=== PATIENT | female | born 1945 | race Caucasian/White ===

== ENCOUNTER 2016-11-20 21:39 | Emergency (ER) | payer OTHER ==
[~2016-11-20] VITALS: Ht 160 cm; Wt 40.8 kg
[~2016-11-20 21:39] MED LIST: ALDACTONE; ANTIBIOTIC O500 U/GM T; ATARAX25 MG PO; Amaryl2 MG PO; CLINDAMYCIN HC300 MG PO; HYDROCODONE BIT1 T11 PO; KEFLEX500 MG PO; MEDROL DOSEPAK4 MG PO; METFORMIN500 MG PO; PERCOCET 325 MG1 TA7 PO; PRAVASTATIN SOD20 MG PO; PRAVASTATIN SOD40 MG PO; PREDNISONE10 MG PO; SPIRIVA18 MCG PO; SPIRONOLACTONE50 MG PO; TRAMADOL50 MG PO; TRIAMTERENE & H1 CA1 PO; VIBRAMYCIN100 MG PO
[2016-11-20 22:15] LABS: BASO % 0.3 % (0.0-1.0); EOS # 0.1 10*3/uL (0.0-0.4); EOS % 0.8 % (1.0-4.0); HEMATOCRIT 49.3 % (37.0-47.0); HEMOGLOBIN 15.4 g/dl (12.0-16.0); LYMPH % 10.5 % (27.0-41.0); MEAN CELL VOLUME 95.4 fl (81.0-99.0); MEAN CORPUSCULAR HGB 29.8 pg (27.0-31.0); MEAN CORPUSCULAR HGB CONC 31.2 g/dl (33.0-37.0); MONO # 0.7 10*3/uL (0.1-1.0); MONO % 7.2 % (3.0-9.0); NEUT # 7.5 10*3/uL (2.3-7.9); PLATELET COUNT AUTOMATED 288 10*3/uL (130-400); RED BLOOD COUNT 5.17 10*6/uL (4.10-5.10); RED CELL DISTRI WIDTH 14.3 % (0-14.5); WHITE BLOOD COUNT 9.3 10*3/uL (4.8-10.8)
[2016-11-20 22:31] LABS: ALBUMIN 3.7 gm/dl (3.1-4.5); ALKALINE PHOSPHATASE 125 U/L (45-117); BILIRUBIN, TOTAL 0.2 mg/dl (0.2-1.0); BUN 17 mg/dl (7-24); C-REACTIVE PROTEIN 0.84 MG/DL (0-0.3); CARBON DIOXIDE 36 mmol/L (21-32); CHLORIDE 84 mmol/L (98-107); EST GLOM FILT AFRICAN AMERICAN > 60 ml/min; GLUCOSE 117 mg/dL (65-99); POTASSIUM 5.4 mmol/L (3.5-5.1); SGOT/AST 26 IU/L (3-35); SGPT/ALT 25 U/L (12-78); SODIUM 128 mmol/L (136-145); TOTAL PROTEIN 7.9 gm/dL (6.4-8.2)
[2016-11-21 01:58] LABS: ABG BASE EXCESS -0.7 mmol/L (-2.0-2.0); ABG CO2 CONTENT 39.2 mmol/L (23-27); ABG HCO3 35.3 mmol/l (22-26); ARTERIAL BLOOD GAS PO2 96.5 mmHg (80-90)
[2016-11-21 02:04] LABS: ARTERIAL BLOOD GAS PH 7.078 (7.35-7.45)
[2016-11-21 03:03] LABS: BILIRUBIN NEGATIVE (NEGATIVE); BLOOD TRACE-INTACT (NEGATIVE); CLARITY SL CLOUDY (CLEAR); COLOR YELLOW (YELLOW); GLUCOSE NEGATIVE (NEGATIVE); KETONE NEGATIVE (NEGATIVE); LEUKO ESTERASE NEGATIVE (NEGATIVE); NITRITE NEGATIVE (NEGATIVE); PH 5.5 (5.0-9.0); PROTEIN 1+ (NEGATIVE)
[2016-11-21 03:11] LABS: BACTERIA 1+; URINE REFLEX COMMENT YES (NO)
[2016-11-21 03:15] LABS: BASO # 0.1 10*3/uL (0.0-0.1); BASO % 0.4 % (0.0-1.0); EOS % 0.2 % (1.0-4.0); HEMATOCRIT 51.8 % (37.0-47.0); HEMOGLOBIN 15.6 g/dl (12.0-16.0); IG # 0.2 10*3/uL (0.0-0.1); LYMPH # 0.7 10*3/uL (1.3-4.4); LYMPH % 5.2 % (27.0-41.0); MEAN CORPUSCULAR HGB CONC 30.1 g/dl (33.0-37.0); MEAN PLATELET VOLUME 8.2 fl (9.6-12.3); MONO # 0.5 10*3/uL (0.1-1.0); MONO % 4.2 % (3.0-9.0); NEUT # 10.9 10*3/uL (2.3-7.9); NEUT % 88.4 % (47.0-73.0); PLATELET COUNT AUTOMATED 333 10*3/uL (130-400); RED CELL DISTRI WIDTH 14.3 % (0-14.5); WHITE BLOOD COUNT 12.4 10*3/uL (4.8-10.8)
[2016-11-21 03:19] LABS: MEAN CELL VOLUME 99.6 fl (81.0-99.0)
[2016-11-21 03:27] LABS: ABG CO2 CONTENT 39.5 mmol/L (23-27); ABG HCO3 34.4 mmol/l (22-26); ABG TEMPERATURE 97.7 F (98.0-99.0)
[2016-11-21 03:31] LABS: ARTERIAL BLOOD GAS PH 6.955 (7.35-7.45)
[2016-11-21 03:32] LABS: BUN 17 mg/dl (7-24); CARBON DIOXIDE 36 mmol/L (21-32); CHLORIDE 87 mmol/L (98-107); EST GLOM FILT AFRICAN AMERICAN > 60 ml/min; GLUCOSE 231 mg/dL (65-99); POTASSIUM 5.1 mmol/L (3.5-5.1); SODIUM 132 mmol/L (136-145); TROPONIN I 0.019 ng/ml (<0.045)
[2016-11-21 03:32] LABS: ABG BASE EXCESS -6.5 mmol/L (-2.0-2.0)
[2016-11-21 05:48] LABS: ABG BASE EXCESS 0.5 mmol/L (-2.0-2.0); ABG CO2 CONTENT 33.1 mmol/L (23-27); ABG HCO3 30.7 mmol/l (22-26); ABG TEMPERATURE 96.4 F (98.0-99.0); ARTERIAL BLOOD GAS PH 7.232 (7.35-7.45)
== END 2016-11-21 06:45 | disposition short-term general hospital (02) ==
LOC: ED 21:39
PROVIDERS: Emergency Medicine Emergency Medical Services
DX: J96.22 Acute and chronic respiratory failure with hypercapnia (principal); F17.200 Nicotine dependence, unspecified, uncomplicated; Z79.899 Other long term (current) drug therapy

== ENCOUNTER 2017-08-11 19:08 | Inpatient (IN) | payer OTHER ==
[~2017-08-11] VITALS: Ht 160 cm; Wt 43.1 kg
[2017-08-11] VITALS (12 sets, daily range): BP systolic 74–175; BP diastolic 29–66
--- NOTE | ~2017-08-11 | PR ---
[place], [place] PROGRESS NOTE NAME: [id number] UN[facility] #: [id number] ROOM: 511 DOCTOR: HANK LOPEZ MD BIRTHDATE: [birth year] DOS: SUBJECTIVE: The patient has no complaints today. She is sitting up in a chair. She did walk with therapy. PHYSICAL EXAMINATION: VITAL SIGNS: Blood pressure 148/64, pulse is 79, respirations 20, temperature 98.1. LUNGS: Clear. HEART: Regular. ABDOMEN: Soft. EXTREMITIES: Without any edema. ASSESSMENT AND PLAN: 1. Acute hypercapnic and hypoxic respiratory failure. The patient is improving. 2. Sputum with Staphylococcus aureus and Haemophilus influenzae, on antibiotics. The plan is to discharge her to home tomorrow after she completes a 5-day course of IV antibiotics. 3. Urinary tract infection with Escherichia coli, also on antibiotics. 4. Adult failure to thrive. The patient has refused senior care placement. We will be discharging her to home tomorrow with visiting nurses. 5. Abnormal liver function tests, possibly from the sepsis pattern. We will repeat liver function tests in the morning along with a liver scan. HANK LOPEZ MD CM:PNANGELO [id number] HANK LOPEZ MD 08/18/17 0510 interface
--- NOTE | ~2017-08-11 | PR ---
[place], [place] PROGRESS NOTE NAME: LEONARDO LUCIA UNIT #: [id number] ROOM: 511 DOCTOR: NYDIA HERNANDEZ DO BIRTHDATE: [birth year] DOS: 08/18/2017 SUBJECTIVE: The patient was seen and examined at bedside. The patient reports that her respiratory symptoms have completely resolved. She feels better, has no new complaints today. The patient reports that she feels like she is ready for discharge. OBJECTIVE: VITAL SIGNS: Temperature is 98.0, pulse is 76, respirations 18, blood pressure 149/57 and pulse ox is 98% on 3 liters nasal cannula. LABS: BMP and CBC were reviewed and showed no acute changes from previous labs. Bronchial washings remain negative. Blood cultures were negative. Urine culture was positive for E. coli. Sputum culture is positive for Staphylococcus aureus and Hemophilus influenza. Liver ultrasound from yesterday showed unremarkable ultrasound of the right upper quadrant, no cholelithiasis, gallbladder wall thickening or biliary dilatation was appreciated. PHYSICAL EXAMINATION: GENERAL APPEARANCE: Alert, awake and oriented x 3, no acute distress. HEENT: Eyes are clear. Nares were patent. Mucous membranes are moist. NECK: Supple, nontender. PULMONARY: No wheezes, rales or rhonchi. Clear to auscultation. CARDIOVASCULAR: Regular rate and rhythm; no murmurs, gallops or rubs. ABDOMEN: Soft, nontender with positive bowel sounds. ASSESSMENT: 1. Resolution of acute severe hypercapnic and hypoxic respiratory failure. 2. Acute polymicrobial pneumonia, status resolved. 3. Severe protein-calorie malnutrition, which is chronic. PLAN: The patient was medically stable from a pulmonary standpoint for discharge. The patient is to continue on Diamox with outpatient antibiotics and can follow up with outpatient with Dr. Starkey as needed. The patient was medically stable for discharge. NYDIA HERNANDEZ DO [place], [place] PROGRESS NOTE NAME: LEONARDO LUCIA UNIT #: [id number] ROOM: 511 DOCTOR: NYDIA HERNANDEZ DO BIRTHDATE: [birth year] FLOYD STARKEY MD CM:PNANGELO [id number] [id number] NYDIA HERNANDEZ DO 08/18/17 225 interface
--- NOTE | ~2017-08-11 | CON ---
[place], [place] REPORT OF CONSULTATION NAME: LEONARDO LUCIA UNIT #: [id number] [facility] DOCTOR: JAKY HENDERSON MD,FLOYD BIRTHDATE: [birth year] DOS: 08/12/2017 REASON FOR CONSULTATION: To assess the patient's current acute respiratory failure, hypercapnia. HISTORY OF PRESENT ILLNESS: The patient is unable to provide me any history by herself since the patient currently intubated, noted on mechanical ventilation; however, been noted awake with a low dose of IV Diprivan 20 mcg per minute. She has been brought to the hospital. The patient has been seen by the ER physician for this patient because of the unresponsiveness. The patient has been noted with significant change in mental status, confusion, which has been described for the past few days and the patient refusing to come to the hospital. The patient has been brought to the hospital by the EMS, noted with a severe acute hypercapnic respiratory failure for the patient. Change in mental status and unresponsiveness. The patient has been assessed by Dr. Sands for this patient in the Emergency Room. The arterial blood gases were noted pCO2 of 173, pH of 7.03, pO2 of 93 for the patient on 100% nonrebreather mask. She has been intubated and started on mechanical ventilation. Mechanical ventilation, continue the patient since last night until this morning assist control, volume control, mechanical ventilation without any difficulty. The sedation to be given Diprivan. She has not been noted any chest pain reported. There were no symptoms of hemoptysis. Post-intubation, patient noted hypotensive requiring use of the vasopressor therapy for the patient's short term as well. The patient has been started on intravenous antibiotics. The patient and getting IV Solu-Medrol 40 mg hours. REVIEW OF SYSTEMS: Could not be completed since the patient is currently intubated, noted on mechanical ventilation. PAST MEDICAL HISTORY: The patient was recorded as a: 1. History of chronic obstructive pulmonary disease. 2. History of breast cancer, right lumpectomy details otherwise unknown. PAST SURGICAL HISTORY: The patient reported as: 1. Surgery of lower back: 2. Appendectomy. 3. TNA. 4. Right breast lumpectomy. SOCIAL HISTORY: The patient was described as no tobacco use. The patient in the history or documented by the nursing staff. However, this requires confirmation from the family members. She had not been reported any history of alcohol use or any illicit drugs. FAMILY HISTORY: The patient was unknown. PHYSICAL EXAMINATION: GENERAL: A 72-year-old female who has been currently noted intubated, mechanical ventilation noted quite cachectic. Height of 5 feet 3 inches, weight of 95 pounds. The patient's BMI only 16.8. [place], [place] REPORT OF CONSULTATION NAME: LEONARDO LUCIA UNIT #: [id number] [facility]: [facility] DOCTOR: JAKY HENDERSON [facility] BIRTHDATE: [birth year] VITAL SIGNS: Which has been recorded shows rectal temperature noted low grade. The patient 100.4 degree Fahrenheit, otherwise the temperature noted as normal. Temperature on admission are noted 100.7 degree Fahrenheit, respiratory recorded 32, 24, current mechanical ventilation x 12. Severe tachycardia noted, heart rate of 138 beats per minute, maximum heart rate occurred noted. Heart rate as 90. The patient noted as lowest of 74-52 and this morning noted 124/48. Pulse oxygen saturation of the patient noted 50% oxygen as 99% saturation this morning. HEENT: The patient currently intubated. Orogastric tube in place. Head was atraumatic. Eyes nonicterus. NECK: Supple. EARS, NOSE, THROAT SYMPTOMS: JVD appeared to be elevated. The patient mildly in the 90 degree flat position. CARDIOVASCULAR: S1, S2 audible. LUNGS: Noted for patient. Generally decreased breath sounds in the lungs bilaterally. Decreased air exchange were noted. Scattered wheezing. ABDOMEN: Flat, soft, nontender. Bowel sounds present. EXTREMITIES: The patient was noted with loss of muscle mass for the patient. There was no clubbing, cyanosis. MUSCULOSKELETAL: No gross deformity or loss of muscle mass. The patient was noted. Visible skin: No lesions or rashes. CENTRAL NERVOUS SYSTEM: The patient could not be done accurately for this patient. The patient was noted gently awake. The patient is low dose of sedation at this time. Further examination could not be performed. LABORATORY DATA: The labs in this patient. Chest x-ray, the patient was originally done on admission prior to intubation, the patient was removed for this patient shows patchy infiltration in the right upper lung. Severe hyperinflation changes of COPD, suspected volume loss. The patient with atelectasis, infiltration noted in the left lung. The chest x-ray of the patient that has been done previously for the patient at that time. The patient seemed to be intubated at that time. Chest x-ray was noted, well inflated with changes of COPD and hyperinflation at that time. Chest x-ray of the patient post-intubation shows endotracheal tube were noted about 6 cm above the aliyah level. Improvement in aeration Noted with bilateral patchy infiltration was still visible. NG tube were noted in the stomach. IMPRESSION: 1. The patient who has been currently noted with acute severe hypercarbic respiratory failure for the patient with possible underlying chronic hypercarbia suspected with acute hypoxia and respiratory failure as a result of current area of atelectasis and bilateral patchy infiltration is very likely. The infiltration. The patient could be considered. The patient as acute pneumonia for this patient with community acquired infection, gram-positive, gram-negative infection. The possibility of viral infection can be completely excluded; however, the history at this time has not been available. 2. Metabolic alkalosis. The patient was also noted the patient on this admission as well. 3. Physical appearance of very severe advanced protein calorie malnutrition, muscle mass loss as well past history of breast cancer. The patient was noted [place], [place] REPORT OF CONSULTATION NAME: LEONARDO LUCIA UNIT #: [id number] [facility]: [facility] DOCTOR: JAKY HENDERSON MD,FLOYD BIRTHDATE: [birth year] on the right side, details unknown from the past surgery. PLAN OF MANAGEMENT: Ventilator bundle management will be continued. The patient was started on IV Solu-Medrol 40 mg every 8 hours and getting IV meropenem. The patient states hematocrit is good coverage for the typical and atypical organisms including gram-negative coverage. The feeding and nutrition support will be started. Obtain another arterial blood gas for patient to reassess the current oxygenation prior to assess and further changes. Fiberoptic bronchoscopy will be done tomorrow. Monitor the patient for further assessment of endobronchial tree as well. Nutrition support will be started. Prealbumin level will be obtained. DVT prophylaxis will be continued. Supportive therapy, plan of management, other care plan. Continue use of propofol. Use of vasopressor if necessary for the patient for the hypertension could be resumed. Otherwise, keep up with the volume. Additional treatment changes will be done based on progression of the illness. Try to obtain the medical record, patient from the other facility for this patient for details about history of cancer. CT scan of the chest might be beneficial. The patient to assess. Use of the Diamox. The patient if the bicarbonate level will be persistently elevated. Other supportive therapy, plan of management and care. The patient today were ordered. At this time. The patient pulmonary critical evaluation and management was 45 minutes. Labs to be added to the patient in addition to the chest x-ray of patient above the insert for the impression note. Continue lab for this patient after the chest x-ray which are dictated in the consultation. Arterial blood gas that were done yesterday prior to intubation pH 7.03, pCO2 of 173, pO2 of 93.4. The arterial blood gas that were done later, pH of 7.25, pCO2 80.4, pO2 of 95, 100% oxygen supplementation. Arterial blood gas for the patient this morning, pH of 7.42, pCO2 of 52, pO2 of 52.4 on 40% oxygen. Arterial blood gas for the patient and 50% oxygen, pH of 7.40, pCO2 of 59, pO2 of 85 later on done. The CBC yesterday on admission, WBC count 15.6, hemoglobin and hematocrit normal, platelet count was normal. The CMP of the patient this morning, glucose 141, BUN 13, creatinine 0.44, sodium 133, ____, chloride of 90, carbon dioxide of 41, alkaline phosphatase mildly elevated at 161. Albumin decreased 2.7, mildly troponin of patient first set was normal. PT/INR noted yesterday normal. Influenza A and B, nasal washing antigen rapid antigen were negative. CT scan of the head for the patient without contrast does not show any acute pathology. Cervical spine was also noted essentially without contrast without any major acute abnormality or injury findings. Lactic acid, the patient that were done yesterday was noted as normal. [place], [place] REPORT OF CONSULTATION NAME: LEONARDO LUCIA UNIT #: [id number] [facility]: [facility] DOCTOR: JAYESH PHILLIPS MDM BIRTHDATE: [birth year] FLOYD STARKEY MD CM:CONSTR:REPORT OF CONSULTATION 1634 08/12/17 1800 interface
--- NOTE | ~2017-08-11 | PR ---
[place], [place] PROGRESS NOTE NAME: LEONARDO LUCIA UNIT #: [id number] ROOM: [facility] DOCTOR: HANK LOPEZ MD BIRTHDATE: [birth year] DOS: SUBJECTIVE: She was extubated yesterday. OBJECTIVE: GENERAL: This morning is awake and alert and oriented, in no major distress. VITAL SIGNS: Blood pressure is 128/59, pulse of 84, respirations 28, temperature 97.6. LUNGS: Clear. HEART: Regular. ABDOMEN: Soft. EXTREMITIES: Without any edema. ASSESSMENT AND PLAN: 1. Acute hypoxic and hypercapnic respiratory failure, stable post-extubation. 2. Sputum culture with Staphylococcus aureus and Haemophilus influenza as well as urinary tract infection with Escherichia coli. For which she has been placed on cephalosporin. Dr. Parker has changed the antibiotic to Rocephin. 3. Adult failure to thrive. The patient is to go to rehab if Physical Therapy agrees ____ so far the patient is refusing. PT, OT will be consulted on transfer to the [facility]. HANK LOPEZ MD CM:PNTRANS [id number] HANK LOPEZ MD 08/16/17 1126 interface
--- NOTE | ~2017-08-11 | PR ---
[place], [place] PROGRESS NOTE NAME: LEONARDO LUCIA [facility] #: [id number] UNIT #: [id number] ROOM: [facility] DOCTOR: JAKY HENDERSON MD,FLOYD BIRTHDATE: [birth year] DOS: 08/13/2017 SUBJECTIVE: The patient is seen and examined this afternoon. She has now been noted symptoms of chest pain or any abdominal pain reported as the patient has been awakened from the sedation. The patient was noted with normal mental status per nursing staff. This afternoon, the patient was sedated with IV Diprivan. Continue same mechanical ventilator, sating yesterday without any changes noted. The oxygen supplementation noted as 50% oxygen. She has been planned for bronchoscopy done today in the Intensive Care Unit for further assessment. Thick secretion endobronchial tree. She has now been noted any symptoms of hemoptysis. The feeding was continued. The patient seemed to be tolerated. OBJECTIVE: VITAL SIGNS: Temperature max of 99.9 degree Fahrenheit noted. The respiratory rate 12-14, heart rate of 83-101, blood pressure 116/50-117/52. Intake is 1526/600 mL. Pulse oxygen saturation 50% oxygen, 97% saturation. HEENT: Examination shows the patient remained orally intubated. NECK: Supple. Head was atraumatic. CARDIOVASCULAR: S1, S2 is audible. LUNGS: The patient was noted without any crackles. Decreased breath sounds noted with expiratory wheezing. The patient scattered in the lungs. ABDOMEN: Soft, nontender. Bowel sounds present. CENTRAL NERVOUS SYSTEM: The patient apparently noted nonfocal. Moving upper and lower extremities by herself. MUSCULOSKELETAL: The patient has chronic protein malnutrition status. The patient was also noted. No deformities. SKIN: Visible skin. No lesions or rashes. LABORATORY DATA: Blood culture from 08/11/2016 this month showed no bacterial growth. Urine culture the patient heavy growth of gram-negative bacilli with pending identification sensitivities. One of the culture ____ showed no bacterial growth, preliminary at this time. The CMP this morning, glucose 190, BUN 21, creatinine was normal, CO2 36. Prealbumin noted only 7. Alkaline phosphatase of 138, mildly elevated. Albumin 2.0. Total protein 6.3, mildly decreased as well. CBC today: WBC count 10.3, hemoglobin 11, hematocrit 35.5, platelet count 226,000. Arterial blood gas this morning, pH of 7.45, pCO2 of 52.2, pO2 156 with a 50% oxygen supplementation. IMPRESSION: 1. The patient who had been currently noted with a severe acute hypercapnic and hypoxic respiratory failure related to the chronic obstructive pulmonary disease. 2. Bilateral lower lobe pneumonia. The patient has been considered at the chest x-ray. CT scan of the chest were reviewed. 3. Past history of breast cancer with mastectomy was also reported. 4. Severe protein-calorie malnutrition as well. 5. Metabolic alkalosis as well. PLAN: Other supportive therapy, plan of management care for the patient to be done based on the current progression of the illness. CT scan of the chest that [place], [place] PROGRESS NOTE NAME: LEONARDO LUCIA UNIT #: [id number] ROOM: [facility] DOCTOR: FLOYD PHILLIPS MD BIRTHDATE: [birth year] was done this morning was personally reviewed. The patient shows basilar area of atelectasis/infiltration without any abnormal mass lesion. The apical scarring in lung. Evidence of severe emphysema changes. The patient was also noted. Scattered pulmonary nodules was noted in the lungs measuring up to 1 cm in size at this time of unknown significance, need correlation to the previous CT scan and other testing as an outpatient. Possible consideration of PET scan. Based on the review of the medical record. Maximize the nutrition support. Bronchoscopy will be done today. Total time, the patient pulmonary critical care evaluation and management today was 48 minutes. FLOYD STARKEY MD CM:PNTRANS 1717 2 FLOYD HENDERSON MD 08/14/17122 interface
--- NOTE | ~2017-08-11 | EKG ---
[place], [place] ELECTROCARDIOGRAM REPORT NAME: LEONARDO LUCIA UNIT #: [id number] ROOM: [facility] DOCTOR: JAKY HENDERSON MD,FLOYD BIRTHDATE: [birth year] DOS: 08/11/2017 TIME: Done at the time of 7:36 p.m. Sinus tachycardia noted, heart rate of 120 beats per minute. Probable left atrial enlargement. Peak T-wave ____ noted in the lateral lead, rule out ischemia or hyperkalemia. FLOYD STARKEY MD CM:EKGRPT:ELECTROCARDIOGRAM REPORT 1722 173 FLOYD HENDERSON MD
--- NOTE | ~2017-08-11 | PR ---
[place], [place] PROGRESS NOTE [id number] UN[facility] #: [id number] ROOM: [facility]- DOCTOR: HANK LOPEZ MD BIRTHDATE: [birth year] DOS: SUBJECTIVE: The patient is awake, on a ventilator, does not seem to have any complaints other than she does not want the ET tube. OBJECTIVE EXAMINATION: GENERAL: Today, she is awake and alert. VITAL SIGNS: Graphic trend shows a pressure 117/52, pulse of 83, respirations 12, temperature 98.7. LUNGS: Clear. HEART: Regular. ABDOMEN: Soft, scaphoid. EXTREMITIES: Without any edema. ASSESSMENT AND PLAN: 1. Acute exacerbation of chronic obstructive pulmonary disease, on intravenous steroids. 2. Acute hypercapnic respiratory failure from end-stage chronic obstructive pulmonary disease, on the ventilator, doing well. 3. Early sepsis, ruled out with negative blood cultures. 4. Moderate cigarette smoker. The patient seems not to want the ventilator. We will have to discuss code status when she comes off the ventilator. Dr. Parker plans to do a bronchoscopy today. CT of the chest shows severe emphysema, also pulmonary nodules were noted, for which recommended a PET scan as an outpatient. An echocardiogram done during admission, showed normal LV function without any valvular pathology. HANK LOPEZ MD CM:PNTRANS [id number] [id number] HANK LOPEZ MD 08/14/17 0117 interface
--- NOTE | ~2017-08-11 | DS ---
[place], [place] DISCHARGE SUMMARY NAME: [facility] [id number] UNIT #: [id number] ROOM: 511 DOCTOR: HANK LOPEZ MD BIRTHDATE: [birth year] DOS: 08/18/2017 HOSPITAL COURSE: The patient is 72 years old. The patient is not known to us. The patient of Dr. River, comes in with complaints of difficulty breathing. After being evaluated in the ER, she was found to be in acute respiratory failure. She was intubated and was transferred to the ICU. After admission, the patient had a consultation with Dr. Parker. IV steroids, antibiotics were added. Peng cultures were performed. The patient improved slowly, but weaning efforts for the first two attempts were unsuccessful. Third time, weaning attempt was successful and she was taken off the ventilator. Echocardiogram showed normal LV function. CT of the chest shows pulmonary nodules and severe COPD. The patient is finally off the ventilator and is doing well, is ambulating with physical therapy. I recommended skilled but she does decline. The plan is to discharge her to home today. DISCHARGE MEDICATIONS: Will be tapering dose of prednisone, Cipro 500 b.i.d., DuoNeb q. 4 hours. The home medications have been discontinued and she will follow Dr. River and she can make a decision in regard to restarting her home meds. HANK LOPEZ MD CM:DISCHARG [id number] [id number] HANK LOPEZ MD 08/18/17 1522 interface
--- NOTE | ~2017-08-11 | PR ---
[place], [place] PROGRESS NOTE NAME: LEONARDO LUCIA [facility] #: [id number] UNIT #: [id number] ROOM: [facility] DOCTOR: JAKY HENDERSON MD,FLOYD BIRTHDATE: [birth year] DOS: 08/14/2017 SUBJECTIVE: She has been noted comfortable at this time without any distress. She was noted much more awake and alert at this time. Sedation has been discontinued. The patient earlier was given a trial of CPAP 5, pressure support of 10 for 2 hours. She was noted significant hypercapnia. The CPAP trial was given yesterday as well. This morning, the patient was noted with worsening with hypercarbia as compared with last night. She continued to remain on mechanical ventilator, switched back to assist control mode of mechanical ventilation. Feeding was continued for the patient which has been well tolerated. She has not been noted any acute hemodynamic instability. Antibiotic was continued. Bronchoscopy done yesterday with significant mucus impaction care of endobronchial tree mainly on the left side. OBJECTIVE: VITAL SIGNS: Normal temperature, respiratory rate 18-12, heart rate 110-78, blood pressure 133/54, blood pressure 142/60. Pulse oxygen saturation of the patient noted on 40% oxygen, 98% saturation. HEENT: No acute change. NECK: Supple. CARDIOVASCULAR: S1, S2 audible. LUNGS: The patient was noted without any wheezing or crackles at the present time. Breaths are noted mildly diminished bilaterally. ABDOMEN: Soft, nontender. Bowel sounds present. EXTREMITIES: The patient was noted without any edema, loss of muscle mass. MUSCULOSKELETAL: No deformity. SKIN: No lesions or rashes. LABORATORY DATA: Culture of the bronchial washing from yesterday normal kelli noted. Endotracheal aspirate on 11, final culture results were pending. Arterial blood gas this morning, pH of 7.25, pCO2 of 91.2, pO2 of 66, ____ 40% oxygen, CPAP 5, pressure support of 10. The CMP this morning, glucose 169, BUN 23, creatinine was normal. CO2 of 39. Albumin of 2.1. CBC this morning, WBC count 11.2, hemoglobin 11.7, hematocrit 38.0, and platelet count of 241,000. Urine culture, the patient was noted with grade than 100,000 colony forming units of E. coli. CT scan of the chest was done yesterday was noted with bilateral pulmonary nodules. Enlargement of lymph nodes were also noted. IMPRESSION: The patient currently noted in the hospital with severe acute hypercapnic and hypoxic respiratory failure, chronic hypoxic respiratory failure, acute exacerbation of chronic obstructive pulmonary disease, bilateral pulmonary nodules, mediastinal lymphadenopathy, hypercarbia. Severe protein calorie malnutrition as well. PLAN OF MANAGEMENT: Maximize the medical therapy for the patient at this time. Another trial of the CPAP for the patient to be done tomorrow morning. Continue current dose of corticosteroids. Continuation of the current antibiotic with change in antibiotic spectrum tomorrow. ____ based on bronchial washing cultures. Other supportive therapy, plan and management continue previously. Usual care are the plan of management and therapy as in progress. Supportive [place], [place] PROGRESS NOTE NAME: LEONARDO LUCIA Ahmet UNIT #: [id number] ROOM: [facility] DOCTOR: FLOYD PHILLIPS MD BIRTHDATE: [birth year] therapy and other care for the patient as well. Maximal nutritional status. Bronchodilators administration. Pulmonary critical college management. Total time pulmonary and critical evaluation and management of the patient was 38 minutes. FLOYD STARKEY MD CM:NORMA [id number] FLOYD HENDERSON MD 08/14/17 1604 interface
--- NOTE | ~2017-08-11 | PROC NOTE ---
[place], [place] PROCEDURE NOTE [id number] UN[facility] #: [id number] [facility]: [facility] DOCTOR: JAKY HENDERSON MD,FLOYD BIRTHDATE: [birth year] DOS: 08/13/2017 PREOPERATIVE DIAGNOSES: Excessive secretion production with acute respiratory failure with chronic obstructive pulmonary disease exacerbation. POSTOPERATIVE DIAGNOSES: Removal of multiple plugs of the mucus, endobronchial tree bilaterally, greater on the left than the right side. There were no endobronchial obstructive lesions. PROCEDURE DESCRIPTION: Informed consent obtained from the patient's family members. The patient's procedure was completed in negative pressure room. The video fiberoptic bronchoscope advanced to the endotracheal tube lower part of trachea. Lower part trachea shows moderate amount of thick mucus secretions. Copious amount of mucus noted with impaction was present, majority in the left upper lingula and lower lobe. All secretions suctioned and cleared. No endobronchial obstructive lesions noted. Moderate mucus impaction noted in the right upper lobe. All the bronchial lobe in the right middle, right upper and the right lower lobe were noted as normal after that. Procedure well tolerated by the patient. Bronchial washings sent for appropriate culture. Procedure well tolerated without complication. As the procedure was completed, the patient will benefit from a trial of possible liberation of mechanical ventilation preparedness by use of CPAP 5, pressure support of 10, which will be given 2 hours off sedation with the patient mostly awake. FLOYD STARKEY MD CM:PROCNOTE:PROCEDURE NOTE [id number] FLOYD HENDERSON MD
--- NOTE | ~2017-08-11 | CON ---
[place], [place] REPORT OF CONSULTATION NAME: LEONARDO LUCIA UNIT #: [id number] ROOM: [facility] DOCTOR: NYDIA HERNANDEZ DO BIRTHDATE: [birth year] DOS: 08/12/2017 CHIEF COMPLAINT: Hypoxia. HISTORY OF PRESENT ILLNESS: Is limited by patent being intubated and on propofol; however, the patient is alert and awake mildly and able to nod her head, but unable to respond to questioning. According to the ED report, the patient is a 72-year-old female who was brought to the hospital for respiratory failure. The patient's pulse ox was 80% when EMS arrived on scene, the patient was put on BiPAP and had improvement of oxygenation level to 100%. Additionally, the patient was tachycardic at the time of presentation. All other HPI limited by patient's medical condition. PAST MEDICAL HISTORY: Hyperlipidemia, end-stage COPD, tobacco abuse, diabetes, osteoporosis. PAST SURGICAL HISTORY: History of back surgery, history of appendectomy, history of tonsillectomy and adenoidectomy, history of breast lumpectomy. SOCIAL HISTORY: Tobacco abuse. The patient unable to provide further social history. FAMILY HISTORY: No family history is available. ALLERGIES: The patient is allergic to RASPBERRY. REVIEW OF SYSTEMS: The patient complains of shortness of breath and sputum production; however, all other review of systems limited due to the patient being intubated. PHYSICAL EXAMINATION: GENERAL APPEARANCE: The patient is awake and alert, in mild to moderate respiratory distress. HEENT: Eyes are clear. No injection, no drainage. Nares patent. Oral mucosa is moist. OG and intubation tube in place. CARDIAC: Regular rate and rhythm, no murmurs, gallops or rubs. PULMONARY: Rales and rhonchi and expiratory wheezes noted in all lung pal with positive sputum production. ABDOMEN: Soft, nontender, positive bowel sounds. EXTREMITIES: Upper and lower extremities showed no edema and erythema, cyanosis or clubbing. NEUROLOGIC: Grossly intact without focal deficits. SKIN: No rashes or lesions. IMAGING: Chest x-ray, diffuse airspace opacities was seen compatible with infiltration, which resolved upon intubation with a followup chest x-ray. Head CT was unremarkable. Cervical spine CT was negative for acute injury. Micro, blood cultures pending. Sputum cultures pending. Urine culture is pending. Nares for MRSA pending. Flu was negative. [place], [place] REPORT OF CONSULTATION NAME: LEONARDO LUCIA UNIT #: [id number] ROOM: [facility] DOCTOR: NYDIA HERNANDEZ DO BIRTHDATE: [birth year] IMPRESSION: 1. Bbkkh-td-kdsiokz respiratory failure with hypercarbia and hypoxia, status improving with chronic obstructive pulmonary disease exacerbation and pneumonitis. 2. Diabetes. 3. Hyperlipidemia. 4. Osteoporosis. 5. Failure to thrive with low BMI. 6. Severe sepsis. TREATMENT PLAN: The patient is intubated at this time. Settings have been adjusted with serial ABGs, bronchoscopy possible for tomorrow to help clear secretions. Continue with azithromycin and Merrem, DuoNeb, Solu-Medrol 40 q.8 for respiratory therapy. Agree with all other plan. Continue with supportive care. We will reassess the patient in the morning. We appreciate this consult. NYDIA HERNANDEZ DO FLOYD STARKEY MD CM:CONSTR:REPORT OF CONSULTATION 1215 08/12/17 1313 interface
--- NOTE | ~2017-08-11 | PR ---
[place], [place] PROGRESS NOTE NAME: LEONARDO LUCIA [facility] #: [id number] UNIT #: [id number] ROOM: 511 DOCTOR: JAKY HENDERSON MD,FLOYD BIRTHDATE: [birth year] DOS: 08/18/2017 SUBJECTIVE: The patient was independently seen and examined, watm-jf-ukei encounter, history was confirmed, physical examination performed, all the lab reviewed, assessment and the management changes for the patient was personally done. The note done by the biomedical photographer was approved as well. The patient has been noted comfortable at this time, sitting on the chair, does not have signs of acute distress. Denies symptoms of chest pain, hemoptysis. PHYSICAL EXAMINATION: VITAL SIGNS: Reviewed as normal. The pulse oxygen saturation noted on 3 liters at 98% saturation of oxygen. LUNGS: Noted with moderate decreased breath sounds. There were no wheezing or crackles present at this time. ABDOMEN: Soft, nontender. EXTREMITIES: Noted without any acute edema. Chronic loss of muscle mass was noted. IMPRESSION: The patient has been showing progressive resolution and improvement in the acute severe hypercapnic respiratory failure with hypoxia, polymicrobial pneumonia, Haemophilus influenzae with infection, chronic protein calorie malnutrition, and over debility. PLAN: To discharge the patient home on oral antibiotics, bronchodilators, corticosteroids and the long-term management of COPD medications which has been made by Dr. Katie Hardy. FLOYD STARKEY MD CM:PNTRANS [phone] FLOYD HENDERSON MD 08/18/17 182 interface
--- NOTE | ~2017-08-11 | PR ---
[place], [place] PROGRESS NOTE [id number] UN[facility] #: [id number] ROOM: 511 DOCTOR: JAKY HENDERSON MD,FLOYD BIRTHDATE: [birth year] DOS: 08/17/2017 SUBJECTIVE: She was independently seen and examined in [id number] encounter, history was confirmed, physical examination performed. All the available labs were reviewed. The assessment and management changes were personally done. Note done by the medical anthropologist was approved. The patient has been doing well. The patient sitting at this time on the chair in her room, eating her breakfast. Using oxygen supplementation on nasal cannula. She has not been noted with symptoms of chest pain. Coughing and shortness of breath are improving. OBJECTIVE: VITAL SIGNS: Reviewed with the patient was essentially noted as normal. The pulse oxygen saturation of the patient recorded 3 liters on nasal cannula 93% saturation. LUNGS: Noted decreased breath sounds in the lungs bilaterally. ABDOMEN: Soft, flat, nontender. EXTREMITIES: Loss of chronic muscle mass. IMPRESSION: The patient with progressive resolution of acute severe hypercapnic hypoxic respiratory failure with acute polymicrobial pneumonia, predominant organism Haemophilus influenzae, severe chronic protein calorie malnutrition. PLAN OF TREATMENT: Continue current plan of therapy as in progress. Continue bronchodilators and oxygen supplementation. The Solu-Medrol will be decreased to 40 mg b.i.d. dosing today. FLOYD STARKEY MD CM:PNTRANS [id number] FLOYD HENDERSON MD 08/18/17 0134 interface
--- NOTE | ~2017-08-11 | PR ---
[place], [place] PROGRESS NOTE NAME: LEONARDO LUCIA [facility] #: [id number] UNIT #: [id number] [facility]OM: [facility] DOCTOR: JAKY HENDERSON MD,FLOYD BIRTHDATE: [birth year] DOS: 08/15/2017 PULMONARY PROGRESS NOTE SUBJECTIVE: The patient remains on mechanical ventilator. She has been attempted with a trial of CPAP yesterday, was not tolerated with increased hypercarbia. The patient remains on mechanical ventilation this morning, getting Diprivan 30 mcg per kilogram per minute. She has been noted easily arousable even with that. She has not been showing any signs of acute hemodynamic instability or respiratory changes. She was continued on the corticosteroids and bronchodilators. The bronchial washing culture of the patient, which has been available, was rather reviewed. It was done on 08/11/2017. Endotracheal aspirate culture of the patient was also noted positive with light growth of gram-positive cocci, Staph aureus, but predominant growth was noted of Haemophilus influenzae infection, which is a beta-lactamase species. Feeding of the patient has been continued and was well tolerated without any difficulty. OBJECTIVE: VITAL SIGNS: Low-grade fever noted at 100.2 degree Fahrenheit, 99.2 degree Fahrenheit, respiratory rate 12-18, heart rate of 105-81, blood pressure 134/72-122/49. HEENT: Examination shows head was atraumatic. Eyes nonicterus. The patient remains orally intubated. Orogastric tube is in place. NECK: Supple. CARDIOVASCULAR SYSTEM: S1, S2 is audible. LUNGS: The patient was noted without any wheezing or crackles. Scattered expiratory wheezing. ABDOMEN: Soft, nontender. EXTREMITIES: The patient was noted without any acute edema. Loss of muscle mass of the patient noted previously is unchanged. MUSCULOSKELETAL: Without any acute deformities. SKIN: Noted without any lesions or rashes. LABORATORY DATA: Arterial blood gas of the patient that was done on assist control mode of mechanical ventilation this morning was reviewed and noted as pH of 7.37, pCO2 74.4, pO2 of 85.5 with 45%, assist control more of mechanical ventilation, tidal volume 500 mL, PEEP of 5.0. Acid fast bacillus smear of the patient was noted negative for bronchial washing, pending culture results. The culture of the endotracheal aspirate was with light growth of gram-positive cocci, Staph aureus, methicillin-sensitive species and growth of Haemophilus influenzae. Culture of the bronchial washing was noted with no bacterial isolation. CMP of the patient that was done on 08/15/2017, BUN 28, creatinine was normal, glucose 155. Carbon dioxide 41. Albumin is 2.1. CBC of the patient of 08/15/2017, WBC 8.1, hemoglobin 11.4, hematocrit 36.8, platelet count of 239,000. IMAGING STUDIES: The chest x-ray of the patient that was done this morning was reviewed as well, it shows endotracheal tube was noted as high-riding endotracheal tube. The NG tube was noted in the stomach. Lungs are [place], [place] PROGRESS NOTE NAME: LEONARDO LUCIA UNIT #: [id number] [facility]OM: [facility] DOCTOR: JAKY HENDERSON MD,[facility] BIRTHDATE: [birth year] hyperinflated with a small pleural fluid noted in the right side. IMPRESSION: 1. The patient who has been currently admitted to the hospital and was treated for acute respiratory failure secondary to acute exacerbation with hypercapnia and change in mental status. 2. Acute pneumonia with Haemophilus influenzae, possible colonization or infection, polymicrobial gram-positive Staph aureus would be considered as well. 3. Severe protein-calorie malnutrition status as well. 4. Severe hypercarbia. 5. Pulmonary nodule, at this time significance unknown. 6. Bilateral lower lobe pneumonia. PLAN OF MANAGEMENT: Discontinuation of the IV Diprivan of the patient completed. After the patient noted awake, start another trial of CPAP 5, pressure support of 10 for 2 hours as tolerated. Obtain arterial blood gases after that. Adjust the antibiotics according to the current culture results. Continue the bronchodilators. Continue steroids. Continue nutritional support. Obtain the prealbumin level tomorrow morning to reassess the patient. Nutritional support. Supportive therapy and other plan of management to be continued as well. Usual treatment, other supportive care, plan of management. Continue the medical management of metabolic alkalosis as well. Supportive care and other therapy, plan of management and treatments. Bronchodilators administration. Total time of pulmonary and critical evaluation and management of the patient on today's note is 38 minutes. FLOYD STARKEY MD CM:PNTRANS [id number] FLOYD HENDERSON MD 08/15/172201 interface
--- NOTE | ~2017-08-11 | PR ---
[place], [place] PROGRESS NOTE [id number] #: [id number] ROOM: 511 DOCTOR: NYDIA HERNANDEZ DO BIRTHDATE: [birth year] DOS: 08/16/2017 SUBJECTIVE: The patient was seen and examined at bedside this morning. The patient has no new complaints. The patient was successfully extubated off the ventilator yesterday and weaned down to nasal cannula. The patient has no new complaints. She reports that her shortness of breath and difficulty breathing have improved since the time of admission. OBJECTIVE: VITAL SIGNS: Temperature 98.3, pulse 97, respirations 29, blood pressure 120/58, pulse ox is 96% on 2 liters nasal cannula. GENERAL APPEARANCE: The patient is alert and oriented x 3, in no acute distress. HEENT: Head is atraumatic, normocephalic. Eyes are clear. No injection. Nares are patent. Mucous membranes are moist. NECK: Supple, nontender. CARDIOVASCULAR: Regular rate and rhythm. No murmurs, gallops or rubs. PULMONARY: No crackles were appreciated. Scattered expiratory wheezing throughout all lung pal. ABDOMEN: Soft, nontender with positive bowel sounds. EXTREMITIES: No edema. No erythema. No cyanosis. No clubbing. MUSCULOSKELETAL: No deformities appreciated. SKIN: No rashes or lesions. LABORATORY DATA: Prealbumin this morning was 17. No other labs were ordered. Micro: Bronch washings remain negative. Blood cultures are negative. Sputum cultures from the grew staph aureus and Haemophilus. Urine culture is positive for E. coli. Blood cultures remain negative. Chest x-ray from 08/15/2017 shows good positioning of the ET tube and NG tube prior to extubation. IMPRESSION: 1. Acute respiratory failure secondary to chronic obstructive pulmonary disease with hypercapnia and altered mental status. 2. Pneumonia, likely Haemophilus influenzae, also with Staphylococcus aureus positive. 3. Protein calorie malnutrition. 4. Hypercarbia. 5. Pulmonary nodule. 6. Bilateral lower lobe pneumonia. TREATMENT PLAN: At this time, the patient was successfully extubated and was weaned from the BiPAP to nasal cannula. The patient tolerated the de-escalation of oxygen supplementation successfully. We will continue to treat the patient with DuoNeb, Rocephin, Diamox and Merrem and Solu-Medrol 40 q 8 hours. We will continue to follow the patient. The patient continues to improve clinically. We will reevaluate the patient in the morning. [place], [place] PROGRESS NOTE NAME: REALEONARDO UNIT #: [id number] ROOM: [facility] DOCTOR: NYDIA HERNANDEZ DO BIRTHDATE: [birth year] NYDIA HERNANDEZ DO FLOYD STARKEY MD CM:NORMA [id number] NYDIA HERNANDEZ DO 08/17/17 0344 interface
--- NOTE | ~2017-08-11 | PR ---
[place], [place] PROGRESS NOTE [id number] #: [id number] ROOM: [facility] DOCTOR: HANK LOPEZ MD BIRTHDATE: [birth year] DOS: 08/15/2017 SUBJECTIVE: The patient failed extubation again this morning. She is on sedation, but is able to answer questions. OBJECTIVE: VITAL SIGNS: Blood pressure is 125/55, pulse of 81, respirations 12, temperature 98.4. LUNGS: Clear. HEART: Regular. ABDOMEN: Soft, scaphoid. EXTREMITIES: Without any edema. ASSESSMENT AND PLAN: 1. Acute hypoxic and hypercapnic respiratory failure on a ventilator. She has failed extubation. Discussed with the patient this morning. She does not want a tracheostomy, so we will try a trial with extubation with weaning parameters again, Dr. Parker is following. 2. Continued low-grade fever with Staphylococcus aureus in the sputum and E. coli in the urine. Readjustments in antibiotics made. 3. Hypoglycemia noted. The patient has history of diabetes mellitus, has been on oral antidiabetics, on coverage scale. 4. Severe chronic obstructive pulmonary disease. Overall, prognosis remains poor and guarded. I did try to communicate further with the patient, but she was unable to write down what she had to stay, so communication board will be obtained. We will try to figure out what she is trying to say this morning. HANK LOPEZ MD CM:PNTRANS [phone] HANK LOPEZ MD 08/15/17 2039 interface
--- NOTE | ~2017-08-11 | WRIGHTHP ---
[place], [place] PATIENT HISTORY AND PHYSICAL EXAM [facility] [id number] #: [id number] ROOM: [facility] DOCTOR: HANK LOPEZ MD BIRTHDATE: [birth year] DOS: 08/11/2017 HISTORY OF PRESENT ILLNESS: A 72-year-old patient not known to me. The patient of Dr. River who comes in with complaints of increasing difficulty breathing as well as change in mental status. The patient has been sick for days as per family members, refused to come to the hospital, but as she became more and more confused, they finally decided to call the ambulance themselves and bring her to the emergency room. She was found to be in acute respiratory failure, hypoxic in the emergency room and was then promptly intubated and was admitted. 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 PAST MEDICAL HISTORY: Significant for: 1. Last hospitalization in October 2016 with acute respiratory failure and she was transferred to [facility]. No records available. 2. COPD, end-stage. 3. Continued nicotine abuse. 4. Benign hypertension. 5. Type 2 diabetes mellitus, non-insulin dependent. 6. Protein calorie malnutrition. MEDICATIONS: She is on currently are glimepiride 2 mg daily, Pravachol 40 daily, spironolactone 50 daily, Pravachol 40 daily, Spiriva 1 puff at bedtime. SOCIAL HISTORY: Smokes apparently about a pack or more. Again, I cannot discuss these details with the patient because she is on a ventilator and there are no family members around. She lives at home. PHYSICAL EXAMINATION: VITAL SIGNS: Graphic trend shows a pressure of 103/49, pulse of 93, respirations 12, temperature 100.9. LUNGS: Diminished breath sounds, clear. HEART: Regular. ABDOMEN: Soft, scaphoid. EXTREMITIES: Without any edema. GENERAL: She is very thin, emaciated looking white female. LABORATORY DATA: At the time of admission, lactic acid was normal. Blood gas showed pH 7.036, pCO2 173, pO2 of 93.4, oxygen saturation 92.0. WBC count is 15.6, hemoglobin 13.1, hematocrit 44.7, platelets were normal. Protime normal. Urinalysis 2+ glucose, 2+ blood, positive nitrite. ASSESSMENT AND PLAN: 1. This patient is admitted with acute hypoxic respiratory failure associated with hypercapnia. She is currently intubated. Dr. Parker has been consulted. 2. Chronic obstructive pulmonary disease with continued nicotine abuse. IV steroids have been ordered. 3. Viral syndrome. Flu titer was negative, but most likely the patient has underlying flu-like illness. 4. Bilateral pneumonia covered with multiple IV antibiotics. Blood cultures [place], [place] PATIENT HISTORY AND PHYSICAL EXAM NAME: LEONARDO LUCIA UNIT #: [id number] ROOM: [facility] DOCTOR: HANK LOPEZ MD BIRTHDATE: [birth year] and sputum cultures have been ordered. 5. Type 2 diabetes mellitus, non-insulin dependent. The patient is on a diet. Blood sugars to be checked twice daily. HANK LOPEZ MD CM:HISPHYS:PATIENT HISTORY AND PHYSICAL EXAMINATION 0 7 HANK LOPEZ MD 08/12/17847 interface
--- NOTE | ~2017-08-11 | PR ---
[place], [place] PROGRESS NOTE NAME: LEONARDO LUCIA [facility] #: [id number] UNIT #: [id number] ROOM: 511 DOCTOR: JAKY HENDERSON MD,FLOYD BIRTHDATE: [birth year] DOS: 08/16/2017 SUBJECTIVE: She has been noted comfortable at this time, was successfully liberated from mechanical ventilator this morning was noted. Sitting on the chair, eating her breakfast. Oxygen supplementation was given by the nasal cannula. BiPAP was also used for the patient as ordered. She has not been reported symptoms of chest pain or any abdominal pain. Denies any headache or dizziness. Noted general weakness and fatigue. There was no diplopia. OBJECTIVE: VITAL SIGNS: For the patient which are recorded shows normal temperature, respiratory rate of 29-22, heart rate of 97-100, blood pressure 116/56, 120/59, pulse oxygen saturation on 40% oxygen 96% saturation. HEENT: Head was atraumatic. Eyes nonicterus. NECK: Supple. CARDIOVASCULAR: S1, S2 audible. LUNGS: Noted generally decreased breath sounds, scattered wheezing. No crackles at the present time. ABDOMEN: Soft, flat, nontender. EXTREMITIES: Without any edema. Significant loss of muscle mass. LABORATORY DATA: Culture of the bronchial washing was finalized as heavy growth of Haemophilus influenza, sensitive to current antibiotics, Rocephin. The prealbumin noted as 17. IMPRESSION: The patient currently noted with polymicrobial pneumonia Staphylococcus aureus Haemophilus influenzae with acute exacerbation of chronic obstructive pulmonary disease, acute severe hypercapnic and hypoxic respiratory failure, severe protein-calorie malnutrition as well. Plan of therapy. PLAN OF TREATMENT: The patient will be continued on the BiPAP as previously ordered. The patient stabilized the respiratory status. She could be transferred to a telemetry floor. Maximal nutritional status. Titrate oxygen, maintaining saturation 92% or greater. DVT prophylaxis. Physical therapy and occupation therapy. The patient would be beneficial as well. Usual care with additional treatment changes to be made based on progression of the illness. The patient was seen today [id number] encounter/. History was personally confirmed. Physical examination performed. The assessment and management of the patient was personally completed. All the labs were reviewed and changes in the medical management was personally made for today's visit. Note done by the biomedical scientist, was approved. [place], [place] PROGRESS NOTE NAME: LEONARDO LUCIA UNIT #: [id number] ROOM: 511 DOCTOR: FLOYD PHILLIPS MD BIRTHDATE: [birth year] FLOYD STARKEY MD CM:PNTRANS [phone] [id number] FLOYD HENDERSON MD 08/16/171929 interface
--- NOTE | ~2017-08-11 | PR ---
[place], [place] PROGRESS NOTE [id number] #: [id number] ROOM: [facility] DOCTOR: HANK LOPEZ MD BIRTHDATE: [birth year] DOS: 08/14/2017 SUBJECTIVE: The patient is currently on a CPAP and trying to get extubated. OBJECTIVE: GENERAL: She is awake and alert and oriented, slightly anxious this morning. VITAL SIGNS: Blood pressure is 133/54, pulse of 78, respirations 14, temperature 99.2. LUNGS: Diminished breath sounds. No wheezes heard this morning. HEART: Regular, slightly tachycardic but she is a little anxious. EXTREMITIES: Without any edema. LABORATORY DATA: Showed WBC count is 11.2, hemoglobin 11.7, platelets 241. Comprehensive glucose 169, BUN 23, creatinine 2.35. Electrolytes normal. Urine culture, no bacterial growth. ASSESSMENT AND PLAN: 1. This patient who presents with hypercapnic respiratory as well as hypoxic respiratory failure, currently on the ventilator. 2. Severe chronic obstructive pulmonary disease with pulmonary nodules, should try to make this patient comfortable. Code status need to be discussed. 3. Protein calorie malnutrition, try to discuss with dietary when she is extubated about her protein diet for this patient. HANK LOPEZ MD CM:PNTRANS [id number] HANK LOPEZ MD 08/14/17 2102 interface
--- NOTE | ~2017-08-11 | PR ---
[place], [place] PROGRESS NOTE [id number] UN[facility] #: [id number] ROOM: 511 DOCTOR: NYDIA HERNANDEZ DO BIRTHDATE: [birth year] DOS: 08/17/2017 SUBJECTIVE: The patient was seen and examined at bedside this morning. The patient has no acute distress. The patient reports that her respiratory failure, shortness of breath, wheezing, cough have all improved. No new complaints this morning. At this time, the patient is feeling well enough to be discharged today. OBJECTIVE: VITAL SIGNS: Temperature 98.1, pulse is 79, respirations 20, blood pressure 148/64, pulse ox is 96% on 3 liters nasal cannula. LABORATORY DATA: CBC, BMP were reviewed. Both CBC and BMP normalized, with improved electrolytes. Liver enzymes mildly elevated at 42 AST and ALT of 86, albumin was 2.5. Blood cultures remain negative. Urine culture positive for E. coli. Sputum culture from , positive for Staph aureus and Haemophilus influenzae. Bronchial washings remain negative. PHYSICAL EXAMINATION: GENERAL APPEARANCE: The patient is alert, awake and oriented x 3, in no acute distress. HEENT: Atraumatic, normocephalic. Eyes are clear. No injection. Membranes are moist. NECK: Supple, nontender. CARDIOVASCULAR: S1, S2 audible. Regular rate and rhythm. LUNGS: Decreased breath sounds in all lung pal with mild expiratory wheezing. No crackles or rhonchi. ABDOMEN: Soft, nontender with positive bowel sounds. EXTREMITIES: Without edema, cyanosis or clubbing. NEUROLOGIC: Negative for focal deficits. IMPRESSION: 1. Polymicrobial pneumonia including Staphylococcus aureus and Haemophilus influenzae with acute exacerbation of chronic obstructive pulmonary disease, status resolving. 2. Acute severe hypercapnic and hypoxic respiratory failure. 3. Protein-calorie malnutrition. 4. Viral syndrome. PLAN: The patient is cleared from a pulmonary standpoint for discharge today. Discussed the case with the primary team. Continue the patient on DuoNebs, Diamox, Solu-Medrol steroid taper and oral antibiotics upon discharge. We will continue to follow the patient as long as she remain hospitalized. I will monitor for continuation of resolution of symptoms. NYDIA HERNANDEZ DO [place], [place] PROGRESS NOTE NAME: LEONARDO LUCIA Ahmet UNIT #: [id number] ROOM: 511 DOCTOR: NYDIA HERNANDEZ DO BIRTHDATE: [birth year] FLOYD STARKEY MD CM:PNANGELO [id number] NYDIA HERNANDEZ DO 08/17/17 1332 interface
--- NOTE | ~2017-08-11 | PR ---
[place], [place] PROGRESS NOTE [id number] #: [id number] ROOM: 511 DOCTOR: HANK LOPEZ MD BIRTHDATE: [birth year] DOS: SUBJECTIVE: The patient is doing well, has no complaints today. OBJECTIVE: GENERAL: She is awake and alert and oriented. VITAL SIGNS: Graphic trend shows that she is afebrile, blood pressure is 149/57, pulse of 76, respirations 18, temperature 98. LUNGS: Clear. HEART: Regular. ABDOMEN: Soft. EXTREMITIES: Without any edema. ASSESSMENT AND PLAN: 1. Acute respiratory failure, hypoxic and hypercapnic, stable. 2. Chronic obstructive pulmonary disease, severe with [id number] nicotine abuse, stable. The plan is to discharge her to home today on PT, OT. HANK LOPEZ MD CM:PNTRANS [id number] HANK LOPEZ MD 08/18/17 1133 interface
[2017-08-11 20:04] LABS: ABG BASE EXCESS 5.9 mmol/L (-2.0-2.0); ABG HCO3 43.1 mmol/l (22-26); ARTERIAL BLOOD GAS PO2 93.4 mmHg (80-90)
[2017-08-11 20:04] LABS: HEMATOCRIT 44.7 % (37.0-47.0); HEMOGLOBIN 13.1 g/dl (12.0-16.0); MEAN CORPUSCULAR HGB 30.5 pg (27.0-31.0); MEAN CORPUSCULAR HGB CONC 29.3 g/dl (33.0-37.0); MEAN PLATELET VOLUME 8.4 fl (9.6-12.3); PLATELET COUNT AUTOMATED 245 10*3/uL (130-400); RED CELL DISTRI WIDTH 14.3 % (0-14.5); WHITE BLOOD COUNT 15.6 10*3/uL (4.8-10.8)
[2017-08-11 20:11] LABS: ARTERIAL BLOOD GAS PH 7.036 (7.35-7.45)
[2017-08-11 20:23] LABS: ALBUMIN 2.7 gm/dl (3.1-4.5); ALKALINE PHOSPHATASE 161 U/L (45-117); BUN 13 mg/dl (7-24); CHLORIDE 90 mmol/L (98-107); CREATININE 0.44 mg/dL (0.55-1.02); POTASSIUM 4.5 mmol/L (3.5-5.1); SGOT/AST 16 IU/L (3-35); SGPT/ALT 19 U/L (12-78); SODIUM 133 mmol/L (136-145); TOTAL PROTEIN 7.8 gm/dL (6.4-8.2)
[2017-08-11 20:23] LABS: PLATELET SUFFICIENCY NORMAL (NORMAL); TOTAL CELLS COUNTED 100 #CELLS
[2017-08-11 20:24] LABS: POLYCHROMASIA SLIGHT
[2017-08-11 20:26] LABS: TROPONIN I < 0.015 ng/ml (<0.045)
[2017-08-11 20:49] LABS: BILIRUBIN NEGATIVE (NEGATIVE); BLOOD 3+ (NEGATIVE); CLARITY SL CLOUDY (CLEAR); COLOR YELLOW (YELLOW); GLUCOSE 2+ (NEGATIVE); KETONE NEGATIVE (NEGATIVE); LEUKO ESTERASE NEGATIVE (NEGATIVE); NITRITE POSITIVE (NEGATIVE); SPECIFIC GRAVITY >= 1.030 (1.005-1.030); UROBILINOGEN 0.2 E.U./dl (0.2-1.0)
[2017-08-11 20:55] LABS: BACTERIA 2+
[2017-08-11 20:56] LABS: RBC 51-100 rbc/hpf (0-2)
[2017-08-11 23:00] LABS: ABG BASE EXCESS 5.8 mmol/L (-2.0-2.0); ABG O2 SATURATION 99.4 % (95-97); ARTERIAL BLOOD GAS PH 7.258 (7.35-7.45)
[2017-08-11 23:02] LABS: ARTERIAL BLOOD GAS PCO2 80.4 mmHg (35-45)
[2017-08-12] VITALS (12 sets, daily range): BP systolic 96–125; BP diastolic 31–57
[2017-08-12 05:52] LABS: ABG BASE EXCESS 10.2 mmol/L (-2.0-2.0); ABG HCO3 36.1 mmol/l (22-26); ABG O2 SATURATION 88.3 % (95-97); ARTERIAL BLOOD GAS PCO2 56.1 mmHg (35-45); ARTERIAL BLOOD GAS PH 7.424 (7.35-7.45); ARTERIAL BLOOD GAS PO2 52.8 mmHg (80-90)
[2017-08-12] MEDS ORDERED: LORCET 5-325 M1 EACH PO (09:13)
[2017-08-12] MEDS ORDERED: TIZANIDINE HCL4 MG PO (09:14)
[2017-08-12] MEDS ORDERED: IBANDRONATE SO150 M1 PO (09:15)
[2017-08-12 10:59] LABS: ABG BASE EXCESS 9.5 mmol/L (-2.0-2.0); ABG HCO3 35.5 mmol/l (22-26); ABG O2 SATURATION 96.5 % (95-97); ARTERIAL BLOOD GAS PCO2 59.2 mmHg (35-45); ARTERIAL BLOOD GAS PH 7.401 (7.35-7.45); ARTERIAL BLOOD GAS PO2 85.1 mmHg (80-90)
[2017-08-12 17:59] LABS: BASO % 0.1 % (0.0-1.0); HEMOGLOBIN 11.7 g/dl (12.0-16.0); LYMPH # 0.8 10*3/uL (1.3-4.4); LYMPH % 7.6 % (27.0-41.0); MEAN CORPUSCULAR HGB CONC 31.5 g/dl (33.0-37.0); MEAN PLATELET VOLUME 8.8 fl (9.6-12.3); MONO # 0.5 10*3/uL (0.1-1.0); NEUT # 8.9 10*3/uL (2.3-7.9); NEUT % 86.7 % (47.0-73.0); PLATELET COUNT AUTOMATED 224 10*3/uL (130-400); RED BLOOD COUNT 3.77 10*6/uL (4.10-5.10); RED CELL DISTRI WIDTH 14.4 % (0-14.5); WHITE BLOOD COUNT 10.3 10*3/uL (4.8-10.8)
[2017-08-12 18:04] LABS: HEMATOCRIT 37.1 % (37.0-47.0); MEAN CELL VOLUME 98.4 fl (81.0-99.0)
[2017-08-12 18:17] LABS: ALBUMIN 2.2 gm/dl (3.1-4.5); ALKALINE PHOSPHATASE 144 U/L (45-117); BUN 19 mg/dl (7-24); CHLORIDE 97 mmol/L (98-107); CREATININE 0.45 mg/dL (0.55-1.02); POTASSIUM 4.3 mmol/L (3.5-5.1); SGOT/AST 27 IU/L (3-35); SGPT/ALT 33 U/L (12-78); SODIUM 136 mmol/L (136-145); TOTAL PROTEIN 6.6 gm/dL (6.4-8.2)
[2017-08-13] VITALS (12 sets, daily range): BP systolic 102–144; BP diastolic 45–60
[2017-08-13 05:19] LABS: ABG HCO3 36.2 mmol/l (22-26); ABG O2 SATURATION 99.2 % (95-97); ARTERIAL BLOOD GAS PCO2 52.2 mmHg (35-45); ARTERIAL BLOOD GAS PH 7.458 (7.35-7.45)
[2017-08-13 05:54] LABS: BASO % 0.1 % (0.0-1.0); HEMATOCRIT 35.5 % (37.0-47.0); LYMPH # 0.8 10*3/uL (1.3-4.4); LYMPH % 7.9 % (27.0-41.0); MEAN CELL VOLUME 97.3 fl (81.0-99.0); MEAN CORPUSCULAR HGB 30.1 pg (27.0-31.0); MEAN PLATELET VOLUME 8.9 fl (9.6-12.3); MONO # 0.6 10*3/uL (0.1-1.0); MONO % 5.7 % (3.0-9.0); NEUT # 8.8 10*3/uL (2.3-7.9); NEUT % 85.8 % (47.0-73.0); PLATELET COUNT AUTOMATED 226 10*3/uL (130-400); RED BLOOD COUNT 3.65 10*6/uL (4.10-5.10); RED CELL DISTRI WIDTH 14.6 % (0-14.5); WHITE BLOOD COUNT 10.2 10*3/uL (4.8-10.8)
[2017-08-13 06:07] LABS: ALKALINE PHOSPHATASE 138 U/L (45-117); BUN 21 mg/dl (7-24); CHLORIDE 96 mmol/L (98-107); CREATININE 0.46 mg/dL (0.55-1.02); POTASSIUM 4.4 mmol/L (3.5-5.1); SGOT/AST 19 IU/L (3-35); SGPT/ALT 27 U/L (12-78); SODIUM 136 mmol/L (136-145); TOTAL PROTEIN 6.3 gm/dL (6.4-8.2)
[2017-08-13 06:34] LABS: PREALBUMIN 7 mg/dl (20-40)
[2017-08-13 19:35] LABS: ABG BASE EXCESS 10.4 mmol/L (-2.0-2.0); ABG HCO3 38.3 mmol/l (22-26); ABG O2 SATURATION 95.3 % (95-97); ARTERIAL BLOOD GAS PH 7.354 (7.35-7.45); ARTERIAL BLOOD GAS PO2 87.9 mmHg (80-90)
[2017-08-13 19:36] LABS: ARTERIAL BLOOD GAS PCO2 70.8 mmHg (35-45)
[2017-08-14] VITALS (9 sets, daily range): BP systolic 95–143; BP diastolic 44–92
[2017-08-14 05:09] LABS: BASO % 0.1 % (0.0-1.0); HEMOGLOBIN 11.7 g/dl (12.0-16.0); LYMPH # 0.7 10*3/uL (1.3-4.4); LYMPH % 6.1 % (27.0-41.0); MEAN CELL VOLUME 97.4 fl (81.0-99.0); MEAN CORPUSCULAR HGB CONC 30.8 g/dl (33.0-37.0); MONO # 0.6 10*3/uL (0.1-1.0); MONO % 5.5 % (3.0-9.0); NEUT # 9.8 10*3/uL (2.3-7.9); NEUT % 87.8 % (47.0-73.0); PLATELET COUNT AUTOMATED 241 10*3/uL (130-400); RED CELL DISTRI WIDTH 14.7 % (0-14.5); WHITE BLOOD COUNT 11.2 10*3/uL (4.8-10.8)
[2017-08-14 05:25] LABS: ALBUMIN 2.1 gm/dl (3.1-4.5); ALKALINE PHOSPHATASE 134 U/L (45-117); BUN 23 mg/dl (7-24); CHLORIDE 97 mmol/L (98-107); CREATININE 0.35 mg/dL (0.55-1.02); POTASSIUM 4.3 mmol/L (3.5-5.1); SGOT/AST 24 IU/L (3-35); SGPT/ALT 33 U/L (12-78); SODIUM 140 mmol/L (136-145); TOTAL PROTEIN 6.5 gm/dL (6.4-8.2)
[2017-08-14 09:25] LABS: ABG BASE EXCESS 8.8 mmol/L (-2.0-2.0); ABG HCO3 39.4 mmol/l (22-26); ABG O2 SATURATION 88.5 % (95-97); ARTERIAL BLOOD GAS PH 7.259 (7.35-7.45); ARTERIAL BLOOD GAS PO2 66.5 mmHg (80-90)
[2017-08-14 09:33] LABS: ARTERIAL BLOOD GAS PCO2 91.2 mmHg (35-45)
[2017-08-14 12:05] LABS: ACID FAST SMEAR Negative (.); ACID FAST SPEC PROCESSING Concentration (.)
[2017-08-15] VITALS (9 sets, daily range): BP systolic 101–145; BP diastolic 48–77
[2017-08-15 06:00] LABS: BASO % 0.1 % (0.0-1.0); HEMATOCRIT 36.8 % (37.0-47.0); HEMOGLOBIN 11.4 g/dl (12.0-16.0); LYMPH # 0.8 10*3/uL (1.3-4.4); LYMPH % 9.6 % (27.0-41.0); MEAN CELL VOLUME 99.5 fl (81.0-99.0); MEAN CORPUSCULAR HGB 30.8 pg (27.0-31.0); MEAN PLATELET VOLUME 9.2 fl (9.6-12.3); MONO # 0.7 10*3/uL (0.1-1.0); MONO % 8.4 % (3.0-9.0); NEUT # 6.6 10*3/uL (2.3-7.9); NEUT % 81.5 % (47.0-73.0); PLATELET COUNT AUTOMATED 239 10*3/uL (130-400); RED CELL DISTRI WIDTH 14.6 % (0-14.5); WHITE BLOOD COUNT 8.1 10*3/uL (4.8-10.8)
[2017-08-15 06:14] LABS: CHLORIDE 98 mmol/L (98-107); POTASSIUM 4.8 mmol/L (3.5-5.1); SODIUM 142 mmol/L (136-145)
[2017-08-15 06:23] LABS: ALBUMIN 2.1 gm/dl (3.1-4.5); ALKALINE PHOSPHATASE 116 U/L (45-117); BUN 28 mg/dl (7-24); CREATININE 0.42 mg/dL (0.55-1.02); SGOT/AST 23 IU/L (3-35); SGPT/ALT 33 U/L (12-78); TOTAL PROTEIN 6.6 gm/dL (6.4-8.2)
[2017-08-15 10:51] LABS: ABG BASE EXCESS 14.3 mmol/L (-2.0-2.0); ABG HCO3 42.1 mmol/l (22-26); ARTERIAL BLOOD GAS PH 7.375 (7.35-7.45); ARTERIAL BLOOD GAS PO2 85.6 mmHg (80-90)
[2017-08-15 10:57] LABS: ARTERIAL BLOOD GAS PCO2 74.4 mmHg (35-45)
[2017-08-15 13:17] LABS: ABG BASE EXCESS 13.9 mmol/L (-2.0-2.0); ABG HCO3 43.8 mmol/l (22-26); ABG O2 SATURATION 90.3 % (95-97); ARTERIAL BLOOD GAS PH 7.315 (7.35-7.45); ARTERIAL BLOOD GAS PO2 65.1 mmHg (80-90)
[2017-08-16] VITALS: BP 126/56
[2017-08-16 04:00] VITALS: BP 129/60
[2017-08-16 08:00] VITALS: BP 128/59
[2017-08-16 12:00] VITALS: BP 120/58
[2017-08-16 16:00] VITALS: BP 126/61
[2017-08-16 20:00] VITALS: BP 126/71
[2017-08-17] VITALS: BP 139/60
[2017-08-17 07:05] LABS: HEMATOCRIT 40.4 % (37.0-47.0); HEMOGLOBIN 12.5 g/dl (12.0-16.0); MEAN CELL VOLUME 98.8 fl (81.0-99.0); MEAN CORPUSCULAR HGB 30.6 pg (27.0-31.0); MEAN CORPUSCULAR HGB CONC 30.9 g/dl (33.0-37.0); MEAN PLATELET VOLUME 9.1 fl (9.6-12.3); PLATELET COUNT AUTOMATED 256 10*3/uL (130-400); RED BLOOD COUNT 4.09 10*6/uL (4.10-5.10); RED CELL DISTRI WIDTH 14.2 % (0-14.5); WHITE BLOOD COUNT 7.5 10*3/uL (4.8-10.8)
[2017-08-17 07:29] LABS: ALBUMIN 2.5 gm/dl (3.1-4.5); BUN 16 mg/dl (7-24); CHLORIDE 102 mmol/L (98-107); CREATININE 0.42 mg/dL (0.55-1.02); POTASSIUM 4.4 mmol/L (3.5-5.1); SGOT/AST 42 IU/L (3-35); SGPT/ALT 86 U/L (12-78); SODIUM 135 mmol/L (136-145); TOTAL PROTEIN 7.4 gm/dL (6.4-8.2)
[2017-08-17 07:30] LABS: ALKALINE PHOSPHATASE 127 U/L (45-117)
[2017-08-17 07:54] LABS: ATYPICAL LYMPHS 1 % (0-0); TOTAL CELLS COUNTED 100 #CELLS
[2017-08-17 07:55] LABS: PLATELET SUFFICIENCY NORMAL (NORMAL)
[2017-08-17 08:00] VITALS: BP 148/64
[2017-08-17 12:00] VITALS: BP 144/66
[2017-08-17 16:00] VITALS: BP 147/50
[2017-08-17 20:00] VITALS: BP 143/50
[2017-08-18] VITALS: BP 126/58
[2017-08-18 06:46] LABS: BASO % 0.2 % (0.0-1.0); HEMATOCRIT 38.5 % (37.0-47.0); LYMPH % 15.8 % (27.0-41.0); MEAN CORPUSCULAR HGB 30.5 pg (27.0-31.0); MEAN CORPUSCULAR HGB CONC 31.2 g/dl (33.0-37.0); MEAN PLATELET VOLUME 8.8 fl (9.6-12.3); MONO # 0.5 10*3/uL (0.1-1.0); MONO % 7.7 % (3.0-9.0); NEUT # 4.6 10*3/uL (2.3-7.9); NEUT % 75.5 % (47.0-73.0); PLATELET COUNT AUTOMATED 296 10*3/uL (130-400); RED BLOOD COUNT 3.93 10*6/uL (4.10-5.10); RED CELL DISTRI WIDTH 14.1 % (0-14.5); WHITE BLOOD COUNT 6.1 10*3/uL (4.8-10.8)
[2017-08-18 07:02] LABS: ALBUMIN 2.7 gm/dl (3.1-4.5); ALKALINE PHOSPHATASE 117 U/L (45-117); BUN 16 mg/dl (7-24); CHLORIDE 102 mmol/L (98-107); CREATININE 0.41 mg/dL (0.55-1.02); POTASSIUM 3.7 mmol/L (3.5-5.1); SGOT/AST 17 IU/L (3-35); SGPT/ALT 64 U/L (12-78); SODIUM 139 mmol/L (136-145); TOTAL PROTEIN 7.1 gm/dL (6.4-8.2)
[2017-08-18 08:00] VITALS: BP 149/57
[2017-08-18] MEDS ORDERED: CIPRO500 MG PO (09:00)
[2017-08-18] MEDS ORDERED: DUONEB 3 MG/3 ML3 M1 NEB (09:00)
[2017-08-18] MEDS ORDERED: PREDNISONE5 MG PO (09:00)
== END 2017-08-18 13:27 | disposition home or self-care (01) | DRG 208 ==
LOC: ED 19:08 → ICCU 20:38 → EDHOLD 20:38 → 5E 20:38 → EDHOLD 20:48 → ICCU 21:02 → 5E 08-16 14:35
PROVIDERS: Emergency Medicine Emergency Medical Services; Internal Medicine Critical Care Medicine
PROC: 5A1945Z Respiratory Ventilation, 24-96 Consecutive Hours (ICD-10-PCS; principal; 2017-08-11)
PROC: 0BH17EZ Insertion of Endotracheal Airway into Trachea, Via Natural or Artificial Opening (ICD-10-PCS; 2017-08-11)
PROC: 0BC98ZZ Extirpation of Matter from Lingula Bronchus, Via Natural or Artificial Opening Endoscopic (ICD-10-PCS; 2017-08-13)
PROC: 0BC48ZZ Extirpation of Matter from Right Upper Lobe Bronchus, Via Natural or Artificial Opening Endoscopic (ICD-10-PCS; 2017-08-13)
PROC: 0BC88ZZ Extirpation of Matter from Left Upper Lobe Bronchus, Via Natural or Artificial Opening Endoscopic (ICD-10-PCS; 2017-08-13)
PROC: 0BC58ZZ Extirpation of Matter from Right Middle Lobe Bronchus, Via Natural or Artificial Opening Endoscopic (ICD-10-PCS; 2017-08-13)
PROC: 0BC38ZZ Extirpation of Matter from Right Main Bronchus, Via Natural or Artificial Opening Endoscopic (ICD-10-PCS; 2017-08-13)
PROC: 0BC78ZZ Extirpation of Matter from Left Main Bronchus, Via Natural or Artificial Opening Endoscopic (ICD-10-PCS; 2017-08-13)
PROC: 0BC68ZZ Extirpation of Matter from Right Lower Lobe Bronchus, Via Natural or Artificial Opening Endoscopic (ICD-10-PCS; 2017-08-13)
PROC: 0BCB8ZZ Extirpation of Matter from Left Lower Lobe Bronchus, Via Natural or Artificial Opening Endoscopic (ICD-10-PCS; 2017-08-13)
PROC: 0BC18ZZ Extirpation of Matter from Trachea, Via Natural or Artificial Opening Endoscopic (ICD-10-PCS; 2017-08-13)
PROC: 5A09357 Assistance with Respiratory Ventilation, Less than 24 Consecutive Hours, Continuous Positive Airway Pressure (ICD-10-PCS; 2017-08-15)
DX: J96.01 Acute respiratory failure with hypoxia (principal); E43 Unspecified severe protein-calorie malnutrition; J10.08 Influenza due to other identified influenza virus with other specified pneumonia; J15.211 Pneumonia due to Methicillin susceptible Staphylococcus aureus; J15.6 Pneumonia due to other Gram-negative bacteria; J15.9 Unspecified bacterial pneumonia; J18.1 Lobar pneumonia, unspecified organism; T17.890A Other foreign object in other parts of respiratory tract causing asphyxiation, initial encounter; E87.3 Alkalosis; N39.0 Urinary tract infection, site not specified; J44.0 Chronic obstructive pulmonary disease with (acute) lower respiratory infection; J44.1 Chronic obstructive pulmonary disease with (acute) exacerbation; J98.11 Atelectasis; Z68.1 Body mass index [BMI] 19.9 or less, adult; S50.01XA Contusion of right elbow, initial encounter; S00.211A Abrasion of right eyelid and periocular area, initial encounter; J96.02 Acute respiratory failure with hypercapnia; B96.20 Unspecified Escherichia coli [E. coli] as the cause of diseases classified elsewhere; B34.9 Viral infection, unspecified; R91.1 Solitary pulmonary nodule; I10 Essential (primary) hypertension; F17.210 Nicotine dependence, cigarettes, uncomplicated; X58.XXXA Exposure to other specified factors, initial encounter; R62.7 Adult failure to thrive; B96.3 Hemophilus influenzae [H. influenzae] as the cause of diseases classified elsewhere; E78.5 Hyperlipidemia, unspecified; M81.0 Age-related osteoporosis without current pathological fracture; J40 Bronchitis, not specified as acute or chronic; R59.0 Localized enlarged lymph nodes; E11.649 Type 2 diabetes mellitus with hypoglycemia without coma; Z79.899 Other long term (current) drug therapy; Z91.018 Allergy to other foods; Z90.89 Acquired absence of other organs; Z85.3 Personal history of malignant neoplasm of breast; Y93.89 Activity, other specified; Y92.89 Other specified places as the place of occurrence of the external cause; Y99.8 Other external cause status

== ENCOUNTER 2017-09-19 09:54 | Emergency (ER) | payer OTHER ==
[~2017-09-19] VITALS: Ht 160 cm; Wt 40.8 kg
[~2017-09-19 09:54] MED LIST changes: +CIPRO500 MG PO; +DUONEB 3 MG/3 ML3 M1 NEB; +IBANDRONATE SO150 M1 PO; +LORCET 5-325 M1 EACH PO; +PREDNISONE5 MG PO; +TIZANIDINE HCL4 MG PO
[2017-09-19] MEDS ORDERED: NEURONTIN300 MG PO (10:17)
== END 2017-09-19 10:22 | disposition admitted as inpatient to this hospital (09) ==
LOC: ED 09:54
DX: M54.5 Low back pain (principal); G89.29 Other chronic pain; J45.909 Unspecified asthma, uncomplicated; J96.02 Acute respiratory failure with hypercapnia; Z88.5 Allergy status to narcotic agent; Z91.018 Allergy to other foods; Z79.899 Other long term (current) drug therapy; Z87.891 Personal history of nicotine dependence

== ENCOUNTER → 2017-12-27 | Outpatient (CLI) | payer OTHER ==
[~2017-12-27] MED LIST changes: +NEURONTIN300 MG PO
[2017-12-27 10:22] LABS: BASO # 0.1 10*3/uL (0.0-0.1); BASO % 0.9 % (0.0-1.0); EOS # 0.3 10*3/uL (0.0-0.4); EOS % 4.6 % (1.0-4.0); HEMATOCRIT 43.2 % (37.0-47.0); HEMOGLOBIN 13.6 g/dl (12.0-16.0); LYMPH # 1.1 10*3/uL (1.3-4.4); LYMPH % 16.5 % (27.0-41.0); MEAN CORPUSCULAR HGB 30.8 pg (27.0-31.0); MEAN CORPUSCULAR HGB CONC 31.5 g/dl (33.0-37.0); MEAN PLATELET VOLUME 8.8 fl (9.6-12.3); MONO # 0.6 10*3/uL (0.1-1.0); MONO % 8.5 % (3.0-9.0); NEUT # 4.8 10*3/uL (2.3-7.9); NEUT % 69.4 % (47.0-73.0); PLATELET COUNT AUTOMATED 306 10*3/uL (130-400); RED BLOOD COUNT 4.41 10*6/uL (4.10-5.10); RED CELL DISTRI WIDTH 12.6 % (0-14.5); WHITE BLOOD COUNT 6.9 10*3/uL (4.8-10.8)
[2017-12-27 10:24] LABS: CHLORIDE 100 mmol/L (98-107); POTASSIUM 4.2 mmol/L (3.5-5.1); SODIUM 136 mmol/L (136-145)
[2017-12-27 10:39] LABS: ALBUMIN 3.7 gm/dl (3.1-4.5); ALKALINE PHOSPHATASE 123 U/L (45-117); BUN 9 mg/dl (7-24); CHOLESTEROL 193 mg/dL (<200); CREATININE 0.61 mg/dL (0.55-1.02); HDL CHOLESTEROL 78 mg/dl (40-60); LDL CHOLESTEROL 101 mg/dL (9-159); SGOT/AST 19 IU/L (3-35); SGPT/ALT 18 U/L (12-78); TOTAL PROTEIN 7.7 gm/dL (6.4-8.2); TRIGLYCERIDES 71 mg/dl (<150); VLDL CHOLESTEROL 14 mg/dL (6-40)
== END | disposition home or self-care (01) ==
LOC: LAB 09:17
PROVIDERS: Internal Medicine
DX: E11.42 Type 2 diabetes mellitus with diabetic polyneuropathy (principal); I10 Essential (primary) hypertension; E78.2 Mixed hyperlipidemia; M81.0 Age-related osteoporosis without current pathological fracture

== ENCOUNTER → 2018-01-03 | Outpatient (CLI) | payer OTHER | END | disposition home or self-care (01) | LOC: CT 13:34 | DX: R91.1 Solitary pulmonary nodule (principal); J43.2 Centrilobular emphysema; R59.0 Localized enlarged lymph nodes; Z85.3 Personal history of malignant neoplasm of breast; Z85.118 Personal history of other malignant neoplasm of bronchus and lung ==

== ENCOUNTER 2018-05-02 19:06 | Inpatient (IN) | payer OTHER ==
[~2018-05-02] VITALS: Ht 160 cm; Wt 42.4 kg
--- NOTE | ~2018-05-02 | CON ---
[place], [place] REPORT OF CONSULTATION NAME: LEONARDO LUCIA [facility] #: [id number] UNIT #: [id number] ROOM: 405 DOCTOR: NYLA LOPEZ DO BIRTHDATE: [birth year] DOS: 05/03/2018 REQUESTING PHYSICIAN: Hospitalist service. REASON FOR CONSULTATION: Respiratory failure. HISTORY OF PRESENT ILLNESS: The patient is a 72-year-old female who presented to the ED on 05/02/2018, due to shortness of breath. She states that this has been ongoing for the past few days. She has had a cough productive for green to yellow sputum as well as a wheeze. She states for the past 7 days, she has had nausea and initially she had abdominal pain, which has since resolved. She was afraid that she might have pneumonia. She uses 4 liters supplemental O2 via nasal cannula around the clock at home. Chest x-ray obtained in the ED showed extensive chronic changes to the lungs with suspected small area of consolidation to left lung base. The patient was diagnosed with pneumonia and she was admitted to the general medical floor with telemetry monitoring. The Pulmonary Medicine Service was consulted for further evaluation of the patient's respiratory failure. PAST MEDICAL HISTORY: This includes history of breast cancer to the right breast approximately 8 years ago with history of surgery and radiation, history of COPD, coronary artery disease, chronic pain, chronic respiratory failure on 4 liters around the clock, type 2 diabetes, hypertension, hyperlipidemia and osteoporosis. PAST SURGICAL HISTORY: This includes history of surgery to the breast, history of lymph node dissection, history of tonsillectomy, history of a total hysterectomy, history of left foot surgery, history of back surgery and history of appendectomy. SOCIAL HISTORY: The patient states that she has been smoking several cigarettes a day since age 16. She states that she last smoked 7 days ago. She denies use of alcohol or illicit drugs. FAMILY HISTORY: The patient's father reportedly from melanoma at age 59. The patient's mother reportedly at age 62 and her past medical history included diabetes, cardiovascular disease, end-stage renal disease, on hemodialysis. The patient reports that several of her maternal and paternal aunts all from breast cancer. ALLERGIES: HYDROMORPHONE. MEDICATIONS: These include alendronate 70 mg weekly, IV azithromycin 500 mg daily, IV normal saline 100 mg an hour, Nicoderm patch 21 mg daily, guaifenesin 600 mg every 12 hours, sliding scale insulin, IV Solu-Medrol 60 mg every 12 hours, Pulmicort nebulizer every 12 hours, [place] 5/325 every 6 hours as needed for pain, roflumilast 500 mcg daily, atorvastatin 10 mg before bed, tizanidine 4 mg before bed, Imdur 30 mg daily, gabapentin 300 mg 4 times a day as needed, Rocephin IV 1 gram daily, Lovenox subq 40 mg daily and DuoNeb treatments every 4 hours. [place], [place] REPORT OF CONSULTATION NAME: LEONARDO LUCIA UNIT #: [id number] ROOM: 405 DOCTOR: NYLA LOPEZ DO BIRTHDATE: [birth year] REVIEW OF SYSTEMS: GENERAL: Denies fevers or chills. HEENT: Denies changes to vision, hearing, eye pain, ear pain, dysphagia. CARDIOVASCULAR: Admits to chronic chest pain, denies palpitations or diaphoresis. RESPIRATORY: Admits to shortness of breath, dyspnea on exertion, cough productive for yellow to green sputum. Admits to wheezing. ABDOMEN: Denies current abdominal pain. Admits to nausea. Denies vomiting, diarrhea, hematochezia or melena. GENITOURINARY: Denies dysuria, hematuria, increased urinary frequency or urgency. NEUROLOGICAL: Admits to lightheadedness and dizziness. PSYCHOLOGICAL: Denies anxiety, depression or substance abuse. ENDOCRINE: She denies intolerance to cold. SKIN: Denies any new ulcers, lesions or rashes. PHYSICAL EXAMINATION: VITAL SIGNS: Show temperature at 97.6 degrees Fahrenheit, heart rate at 88, respiratory rate at 20, blood pressure 116/92, pulse oximetry 97% on 4 liters via nasal cannula. GENERAL: The patient was awake, alert, responsive, cooperative. She was wearing the BiPAP on the time of exam. HEENT: Head was normocephalic and atraumatic. There were no lesions or ulcerations noted to the eyes. NECK: Trachea appears midline. HEART: Regular rate and rhythm were noted. Positive S1 and S2 sounds were heard. No murmurs, rubs or gallops were appreciated. Bilateral lower extremities were without pitting edema. PULMONARY: Lungs were with coarse breath sounds grossly. No rhonchi, wheezing or rales were heard. ABDOMEN: Soft and nontender to palpation. Bowel sounds were auscultated and present. Abdomen was nondistended. EXTREMITIES: Bilateral lower extremities were without pitting edema. No clubbing, cyanosis or erythema was noted. NEUROLOGIC: The patient was grossly without any focal neurologic deficits. Cranial nerves 2-12 are grossly intact. PSYCHOLOGICAL: The patient was with the normal mood and normal affect. She was a fair historian. SKIN: Warm and dry without any induration or erythema. LABORATORY DATA: CBC from today shows white count at 12.4, hemoglobin at 13.2, hematocrit at 40.9, platelets 230. Most recent arterial blood gas from today at around 11:00 a.m. showed pH at 7.389, pCO2 at 57.2, pO2 at 64.4, bicarbonate at 34.0. Most recent coagulation studies from 05/02/2018 showed PT at 9.9, INR at 0.9, activated PTT at 22.7. Chemistries from today show sodium at 128, potassium at 4.5, chloride at 87, bicarbonate at 37, creatinine at 9, glucose at 132, hemoglobin A1c at 5.9, calcium at 8.3, phosphorus at 2.4, magnesium at 2.1, total bilirubin at 0.2, AST at 10, ALT at 13, alkaline phosphatase at 123. Troponin was negative. Albumin 3.3. Lipid panel unremarkable. Vitamin B12 [place], [place] REPORT OF CONSULTATION NAME: LEONARDO LUCIA UNIT #: [id number] ROOM: 405 DOCTOR: NYLA LOPEZ DO BIRTHDATE: [birth year] 577, vitamin D 10.4, folic acid 11.40, TSH 0.639. In terms of microbiology, blood cultures drawn on admission are still pending. IN TERMS OF IMAGING STUDIES: Chest x-ray from 05/02/2018 showed extensive chronic lung changes with a questionable small area of consolidation in the left lung base. IMPRESSION: 1. Acute on chronic hypoxic respiratory failure. 2. Left lower lobe pneumonia. 3. Underweight. 4. Tachypnea. 5. Leukocytosis. 6. Hyponatremia. 7. Hypokalemia. 8. Hyperglycemia. 9. Hypophosphatemia. 10. Transaminitis. 11. Vitamin D deficiency. 12. History of coronary artery disease. 13. History of chronic pain. 14. History of chronic obstructive pulmonary disease. 15. History of type 2 diabetes. 16. History of hypertension. 17. History of hyperlipidemia. 18. History of osteoporosis. 19. Tobacco abuse. PLAN OF MANAGEMENT: The patient is currently on IV azithromycin, IV Rocephin, guaifenesin, bronchodilator therapy and IV Solu-Medrol. Sputum cultures and blood cultures are currently pending. Serologies for urine legionella antigen and urinary strep pneumo antigen are likewise pending. The patient can continue current use of the BiPAP. Oxygen should be titrated to maintain pulse oximetry at 92% or greater. Pulmonary medicine will continue to follow. Nyla Lopez DO [place], [place] REPORT OF CONSULTATION NAME: LEONARDO LUCIA UNIT #: [id number] ROOM: 405 DOCTOR: NYLA LOPEZ DO BIRTHDATE: [birth year] FLOYD STARKEY MD CM:CONSTR:REPORT OF CONSULTATION 1514 05/03/18 1559 interface
--- NOTE | ~2018-05-02 | EKG ---
[place], [place] ELECTROCARDIOGRAM REPORT NAME: LEONARDO LUCIA UNIT #: [id number] ROOM: 405 DOCTOR: MILES DRAFT REPORT BIRTHDATE: [address] [facility] Test Date: 2018-05-02 Test Time: 20:13:56 Pat Name: LEONARDO LUCIA Department: Room: 405 Gender: F Reacher: Ariadna Judd : 1945 Requested By: ELIOT LE Order Number: [id number] Reading MD: Swapnil Parker MD Measurements Intervals Staley Rate: 86 P: 84 UT: 157 QRS: 85 QRSD: 70 T: 70 QT: 348 QTc: 417 Interpretive Statements Sinus rhythm Right atrial enlargement Lateral infarct, acute (LAD) Probable anteroseptal infarct, recent ST elevation, consider inferior injury Electronically Signed On 05-07-2018 11:03:07 PDT by Swapnil Parker MD CM:EKGRPT:ELECTROCARDIOGRAM REPORT 12 1103 ELIOT LE EPIPHANY DRAFT REPORT ELIOT LE
--- NOTE | ~2018-05-02 | PR ---
[place], [place] PROGRESS NOTE [id number] #: [id number] ROOM: 405 DOCTOR: JAKY HENDERSON MD,FLOYD BIRTHDATE: [birth year] DOS: 05/05/2018 PULMONARY PROGRESS NOTE SUBJECTIVE: The patient continued to show reduction of the respiratory symptoms, used the BiPAP last night for a few hours. Using oxygen supplementation this morning. She denies symptoms of chest pain or hemoptysis. OBJECTIVE: VITAL SIGNS: Vital signs of the patient, which have been recorded showed normal temperature, respiratory rate is 18, heart rate is 90, blood pressure is 125/52, and pulse ox saturation on 4 liters nasal cannula is 96% saturation. HEENT: On examination, no new change. CARDIOVASCULAR: S1, S2 audible. LUNGS: Decreased breath sounds. There are no wheezing or crackles today. ABDOMEN: Soft, nontender. Bowel sounds present. EXTREMITIES: Without any acute edema. LABORATORY DATA: CBC was normal. CMP of the patient noted normal BUN and creatinine. Sodium is 133. Blood culture, no bacterial growth for 05/02/2018. IMPRESSION: Progressive resolution of the acute on chronic hypercapnic hypoxic respiratory failure with exacerbation of chronic obstructive pulmonary disease. PLAN OF MANAGEMENT: The patient could be considered for home discharge for further care at this time with tapering prednisone and oral antibiotic. Abstinence tobacco recommended. Continuation of the oxygen supplementation at home setting, previously 4 liters nasal cannula used by the patient upon discharge. FLOYD STARKEY MD CM:PNTRANS [phone] FLOYD HENDERSON MD 05/05/18 1003 interface
--- NOTE | ~2018-05-02 | PR ---
[place], [place] PROGRESS NOTE NAME: LEONARDO LUCIA [facility] #: [id number] UNIT #: [id number] ROOM: 405 DOCTOR: NYLA LOPEZ DO BIRTHDATE: [birth year] DOS: 05/04/2018 SUBJECTIVE: The patient was seen and examined at the bedside. She denies fevers, chills, chest pain, nausea, vomiting, abdominal pain or any changes in bowel or bladder habits. She reports that her shortness of breath is better today. She is with an occasional cough with production of sputum and she still admits to a wheeze. OBJECTIVE: VITAL SIGNS: Show temperature at 98.1 degrees Fahrenheit, heart rate 92, respiratory rate 20, most recent blood pressure was 100/50, pulse oximetry was 100% on 4 liters via nasal cannula. GENERAL APPEARANCE: The patient was awake, alert, responsive, cooperative and in no acute distress. HEENT: Head was normocephalic and atraumatic. There were no lesions or ulcerations noted to the eyes. NECK: Trachea appears midline. HEART: Regular rate and rhythm were noted. Positive S1 and S2 sounds were heard. No murmurs, rubs or gallops were appreciated. Bilateral lower extremities were without pitting edema. PULMONARY: Decreased breath sounds and rhonchi were heard. No rales or wheezing was appreciated. The patient was with an occasional cough. ABDOMEN: Soft, nondistended and nontender to palpation. Bowel sounds were present. EXTREMITIES: Bilateral lower extremities were without pitting edema. No clubbing, cyanosis or erythema was noted. LABORATORY DATA: CBC from today shows white count at 6.8, hemoglobin at 8.8, hematocrit at 28.6, platelets at 184. Most recent chemistries from today show sodium at 140, potassium at 3.4, chloride 105, bicarbonate 29, BUN 7, creatinine 0.20, glucose 107, calcium 6.3 with a corrected calcium at 7.7, magnesium 1.7, total bilirubin 0.2, AST 7, ALT 11, alkaline phosphatase 77, albumin 2.2. SEROLOGIES: Urinary Legionella antigen and urinary strep pneumo antigen are both pending. MICROBIOLOGY: Blood cultures are pending and sputum has not been collected as of yet. IMPRESSION: 1. Gwzer-vo-kihgkgo hypercapnic and hypoxic respiratory failure, improving. 2. Acute exacerbation of chronic obstructive pulmonary disease. 3. Tobacco abuse. 4. Underweight. 5. Normocytic anemia. 6. Lymphopenia. 7. Hypokalemia. 8. Hyperglycemia. 9. Hypocalcemia. 10. Severe protein-calorie malnutrition. [place], [place] PROGRESS NOTE NAME: LEONARDO LUCIA UNIT #: [id number] ROOM: 405 DOCTOR: NYLA LOPEZ DO BIRTHDATE: [birth year] PLAN OF MANAGEMENT: The patient is currently on IV azithromycin, IV Rocephin, IV Solu-Medrol, guaifenesin and bronchodilator therapy. Her Solu-Medrol has been decreased to 40 mg twice a day. Sputum culture and blood cultures are both pending. The patient's electrolytes should be repleted given her hypokalemia and hypocalcemia. Investigation into the patient's drop in hemoglobin could be warranted as this is from 13.2-8.8. Supplemental oxygen should be titrated to maintain pulse oximetry at 92% or greater. Pulmonary medicine will continue to follow. Nyla Lopez DO FLOYD STARKEY MD CM:PNTRANS [id number] NYLA LOPEZ DO 05/04/18 1029 interface
--- NOTE | ~2018-05-02 | CON ---
[place], [place] REPORT OF CONSULTATION NAME: LEONARDO LUCIA [facility] #: [id number] UNIT #: [id number] ROOM: 405 DOCTOR: FLOYD PHILLIPS MD BIRTHDATE: [birth year] DOS: 05/03/2018 PULMONARY CONSULTATION, EVALUATION, AND MANAGEMENT CONSULTATION REQUESTED BY: Hospitalist service. REASON FOR CONSULTATION: For assessment of COPD. HISTORY OF PRESENT ILLNESS: The patient is a 72-year-old white female patient who has been known to me previously. The patient admitted to the hospital in 08/2017, treated for acute exacerbation of COPD. The patient independently seen and examined. History was confirmed for the patient personally. Physical examination performed. Labs were reviewed. Assessment and managed for the patient for today's note is personally completed. Note done by the medical assistant prn was approved. She presented to the Emergency Room and admitted to the hospital after having increased shortness of breath associated with the symptoms of cough with green to yellow sputum expectoration intermittently for the past several days. The symptoms have been present for about a week. She was also noted to have general weakness and fatigue as well as decreased appetite. The patient was noted with symptoms of chest tightness. Wheezing was also reported. REVIEW OF SYSTEMS: CONSTITUTIONAL: Fatigue and tiredness noted without any symptoms of fever or chills. EYES: Denies any burning, redness, or tenderness. EARS, NOSE, THROAT SYMPTOMS: Denies sore throat, hoarseness, otalgia, postnasal drainage or epistaxis. CARDIOVASCULAR: No angina pain, edema, pain of the lower extremities. GASTROINTESTINAL: Dysphagia, nausea, vomiting, diarrhea, abdominal pain, hematemesis, melena, or hematochezia. SKIN: No abnormal lesions or rashes. CENTRAL NERVOUS SYSTEM: Overall, muscle mass loss noted. There were not any focal neurologic deficit, tingling sensation or seizures. GENITOURINARY: No dysuria, suprapubic pain, or hematuria. MUSCULOSKELETAL: No acute joint pain, redness, or tenderness. Remaining systems were reviewed. They were noted all negative. PAST MEDICAL HISTORY: 1. Noted with history of end-stage COPD. 2. Chronic hypoxic respiratory failure, use of oxygen supplementation 4 liters nasal cannula. 3. History of breast cancer, right side noted as well. 4. History of intubation and mechanical ventilation for the respiratory failure in 08/2017. 5. History of type 2 diabetes mellitus. 6. History of coronary artery disease. 7. Also additional history of osteoporosis. 8. History of low BMI. [place], [place] REPORT OF CONSULTATION NAME: LEONARDO LUCIA UNIT #: [id number] ROOM: 405 DOCTOR: JAYESH PHILLIPS MDM BIRTHDATE: [birth year] PAST SURGICAL HISTORY: 1. Lumbar laminectomy. 2. Appendectomy. 3. T and A. 4. Right breast lumpectomy. The details were unknown. SOCIAL HISTORY: The patient was noted with history of tobacco use about a pack of cigarettes or more previously stating that she has not smoked cigarettes for the past few days. Denies history of alcohol use or any illicit drugs. FAMILY HISTORY: Known with the father from complication of melanoma at the age of 59 years. Mother at the age of 60 of complication of heart disease. HOME MEDICATIONS: Fosamax, albuterol sulfate, Advair, gabapentin, Amaryl, Imdur, loratadine, pravastatin, Daliresp, Aldactone, tizanidine and Incruse Ellipta. DRUG ALLERGIES: ALLERGIES TO DILAUDID CAUSING ANAPHYLAXIS. PHYSICAL EXAMINATION: GENERAL: This is a 72-year-old female who has been noted currently awake and alert without any acute distress, on the BiPAP this morning of assessment. VITAL SIGNS: Height of 5 feet 3 inches, weight of 93 pounds, BMI 16.5. Vital signs, which were noted as a temperature normal, respiratory rate 18-24, heart rate 88-98, blood pressure 100/76, on admission currently 116/92. HEENT: Examination shows head was atraumatic. Eyes nonicterus. Loss of muscle mastication. NECK: Supple. CARDIOVASCULAR: S1, S2 is audible. LUNGS: The patient was noted without any crackles. Expiratory wheezing noted with decreased breath sounds in the lungs bilaterally. EXTREMITIES: Loss of muscle mass. MUSCULOSKELETAL: Muscle mass loss noted without any deformities. CENTRAL NERVOUS SYSTEM: Cranial nerves 2-12 are intact. LABORATORY DATA: Lactic acid yesterday noted at 1.3 that was normal. CBC yesterday on admission estimation WBC count 16.2. Hemoglobin, hematocrit and platelet count was normal. The PT and PTT were noted as normal. The CMP that was done on 05/02/2018 on admission was normal BUN and creatinine. Glucose 123, CO2 of 43. CMP this morning, sodium 128, chloride of 87, CO2 of 37. CBC this morning, WBC count 12.4. Hemoglobin and hematocrit, platelet count were normal. The arterial blood gas that was done yesterday evening on 4 liters, pH of 7.34, pCO2 of 76, pO2 of 52.5. Another arterial blood gas this morning, pH of 7.35, pCO2 of 60, pO2 of 97.3. Chest x-ray, one-view, which was done in the Emergency Room was reviewed with finding consistent with COPD. IMPRESSION: 1. The patient who has been currently admitted to the hospital with active tobacco use, history of end-stage chronic obstructive pulmonary disease, chronic hypercapnia hypoxic respiratory failure with acute exacerbation of chronic [place], [place] REPORT OF CONSULTATION NAME: LEONARDO LUCIA UNIT #: [id number] ROOM: 405 DOCTOR: JAKY HENDERSON MD,FLOYD BIRTHDATE: [birth year] obstructive pulmonary disease with acute on chronic hypercapnia hypoxic respiratory failure. 2. Acute bronchitis. 3. Metabolic alkalosis secondary to chronic hypercarbia. 4. Electrolyte imbalance. 5. 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 6. Overall poor physical performance. 7. History of type 2 diabetes mellitus. 8. Coronary artery disease. 9. Past history of breast cancer was also reported. Further details unknown with the past lumpectomy. PLAN OF MANAGEMENT: The patient has been currently getting the BiPAP setting of 07/08 that will be continued without blood gases to be done in 2 hours after the use of the BiPAP to reduce the work of breathing and exacerbation of chronic obstructive pulmonary disease, acute on chronic hypercapnia. Continue current dose of corticosteroids, bronchodilators every 4 hours and other medical therapy. Supportive care, other treatment plan of management to be continued. Additional treatment changes will be done based on progression of the illness. Use of the Daliresp will be certainly contributed to the weight loss and as well to be assessed with a past profile BMI in the last several months to assess that. At this time, the patient will be continued with Daliresp. Sputum for Gram stain and culture. Change of antibiotic based on the sputum culture results. Metabolic alkalosis, also resolving gradually with the supplementation of the electrolytes with intravenous fluids, but avoiding overhydration. Thanks for allowing me to participate in the care of this patient. FLOYD STARKEY MD CM:CONSTR:REPORT OF CONSULTATION 1223 05/03/18 1530 interface
--- NOTE | ~2018-05-02 | PR ---
[place], [place] PROGRESS NOTE NAME: LEONARDO LUCIA UNIT #: [id number] ROOM: 405 DOCTOR: FLOYD PHILLIPS MD BIRTHDATE: [birth year] DOS: 05/04/2018 PULMONARY PROGRESS NOTE: SUBJECTIVE: The patient was noted comfortable at this time, noted better for the patient yesterday reduction in symptoms of shortness of breath and respiratory distress. The coughing has been reported intermittently. He has symptom of wheezing prior to the beginning present illness the patient add on statement. The patient was independently seen and examined, [id number] encounter, history confirmed. Physical examination performed as review assessment of management today noted partially completed. Note done by the medical communication specialist and resident was approved. The patient has been using oxygen supplementation this morning with the BiPAP for several hours in the last 24 hours. PHYSICAL EXAMINATION: VITAL SIGNS: Reviewed showed normal temperature, respiratory 20, heart rate 92, blood pressure 100/50. Pulse oxygen saturation 4 liters 100% saturation. HEENT: No acute change. NECK: Supple. CARDIOVASCULAR: S1, S2 is audible. LUNGS: Moderate decreased breaths noted with expiratory wheezing, no crackles. ABDOMEN: Soft, nontender, flat. EXTREMITIES: Without edema. LABORATORY DATA: BMP noted as potassium 3.4. Normal BUN and creatinine. CBC this morning, WBC count normal, hemoglobin 8.8 and platelet count normal. IMPRESSION: Resolving acute exacerbation of chronic obstructive pulmonary disease, acute tracheobronchitis current medical management, given chronic hypercapnic hypoxic respiratory failure and past history of nicotine use. PLAN OF TREATMENT: Decrease Solu-Medrol dose 40 mg b.i.d. Continue the patient's other plan of treatment at this time as in progress. No additional change in treatment will be necessary. Bronchodilator to be continued. [place], [place] PROGRESS NOTE NAME: LEONARDO LUCIA UNIT #: [id number] ROOM: 405 DOCTOR: FLOYD PHILLIPS MD BIRTHDATE: [birth year] FLOYD STARKEY MD CM:PNTRANS [id number] FLOYD HENDERSON MD 05/04/18 0845 interface
[2018-05-02 19:07] VITALS: BP 170/68
[2018-05-02] MEDS ORDERED: NEURONTIN300 MG PO (19:13)
[2018-05-02] MEDS ORDERED: CLEARATADINE10 MG PO (19:14)
[2018-05-02] MEDS ORDERED: IMDUR SA30 MG PO (19:14)
[2018-05-02] MEDS ORDERED: TIZANIDINE HCL4 MG PO (19:26)
[2018-05-02] MEDS ORDERED: PRAVASTATIN SOD40 MG PO (19:26)
[2018-05-02] MEDS ORDERED: Glimepiride1 MG PO (19:26)
[2018-05-02] MEDS ORDERED: SPIRONOLACTONE50 M1 PO (19:27)
[2018-05-02] MEDS ORDERED: ALENDRONATE SOD70 M1 PO (19:27)
[2018-05-02] MEDS ORDERED: INCRUSE ELLI62.5 MCG INH (19:29)
[2018-05-02] MEDS ORDERED: DALI500T PO (19:29)
[2018-05-02] MEDS ORDERED: ALBUTEROL2.5 MG/0.5 INH (19:29)
[2018-05-02] MEDS ORDERED: ADVAIR 250/501 EA INH (19:30)
[2018-05-02 20:23] LABS: BASO # 0.1 10*3/uL (0.0-0.1); BASO % 0.3 % (0.0-1.0); EOS # 0.5 10*3/uL (0.0-0.4); EOS % 3.3 % (1.0-4.0); HEMATOCRIT 47.5 % (37.0-47.0); HEMOGLOBIN 14.3 g/dl (12.0-16.0); LYMPH # 0.9 10*3/uL (1.3-4.4); LYMPH % 5.6 % (27.0-41.0); MEAN CELL VOLUME 101.1 fl (81.0-99.0); MEAN CORPUSCULAR HGB 30.4 pg (27.0-31.0); MEAN CORPUSCULAR HGB CONC 30.1 g/dl (33.0-37.0); MEAN PLATELET VOLUME 8.8 fl (9.6-12.3); MONO % 6.2 % (3.0-9.0); NEUT # 13.6 10*3/uL (2.3-7.9); NEUT % 84.2 % (47.0-73.0); PLATELET COUNT AUTOMATED 270 10*3/uL (130-400); RED CELL DISTRI WIDTH 12.8 % (0-14.5); WHITE BLOOD COUNT 16.2 10*3/uL (4.8-10.8)
[2018-05-02 20:32] LABS: ACT PARTIAL THROMBO TIME 22.7 SECONDS (20.8-31.5); INTERNATIONAL NORM RATIO 0.9 (2.0-3.5)
[2018-05-02 20:38] LABS: ALBUMIN 3.8 gm/dl (3.1-4.5); ALKALINE PHOSPHATASE 138 U/L (45-117); BUN 10 mg/dl (7-24); CHLORIDE 83 mmol/L (98-107); CREATININE 0.41 mg/dL (0.55-1.02); LIPASE 761 U/L (73-393); POTASSIUM 4.9 mmol/L (3.5-5.1); SGOT/AST 10 IU/L (3-35); SGPT/ALT 16 U/L (12-78); SODIUM 128 mmol/L (136-145); TOTAL PROTEIN 8.2 gm/dL (6.4-8.2)
[2018-05-02 20:40] LABS: TROPONIN I < 0.015 ng/ml (<0.045)
[2018-05-02 20:54] VITALS: BP 168/62
[2018-05-02 21:10] LABS: ABG BASE EXCESS 12.4 mmol/L (-2.0-2.0); ABG HCO3 41.2 mmol/l (22-26); ABG O2 SATURATION 91.4 % (95-97); ARTERIAL BLOOD GAS PH 7.348 (7.35-7.45); ARTERIAL BLOOD GAS PO2 52.5 mmHg (80-90)
[2018-05-02 21:16] LABS: ARTERIAL BLOOD GAS PCO2 76.4 mmHg (35-45)
[2018-05-02 21:20] VITALS: BP 170/68
[2018-05-02 21:45] VITALS: BP 150/58
[2018-05-02] MEDS ORDERED: HYDROCODONE-AC1 EAC1 PO (23:33)
[2018-05-03] VITALS: BP 116/92
[2018-05-03 05:59] LABS: HEMOGLOBIN 13.2 g/dl (12.0-16.0); MEAN CORPUSCULAR HGB 31.1 pg (27.0-31.0); MEAN CORPUSCULAR HGB CONC 32.3 g/dl (33.0-37.0); MEAN PLATELET VOLUME 8.6 fl (9.6-12.3); PLATELET COUNT AUTOMATED 230 10*3/uL (130-400); RED BLOOD COUNT 4.24 10*6/uL (4.10-5.10); RED CELL DISTRI WIDTH 12.7 % (0-14.5); WHITE BLOOD COUNT 12.4 10*3/uL (4.8-10.8)
[2018-05-03 06:04] LABS: HEMATOCRIT 40.9 % (37.0-47.0); MEAN CELL VOLUME 96.5 fl (81.0-99.0)
[2018-05-03 06:16] LABS: ALBUMIN 3.3 gm/dl (3.1-4.5); ALKALINE PHOSPHATASE 123 U/L (45-117); BUN 9 mg/dl (7-24); CHLORIDE 87 mmol/L (98-107); CHOLESTEROL 193 mg/dL (<200); CREATININE 0.43 mg/dL (0.55-1.02); HDL CHOLESTEROL 75 mg/dl (40-60); LDL CHOLESTEROL 108 mg/dL (9-159); PHOSPHOROUS 2.4 mg/dL (2.5-4.9); POTASSIUM 4.5 mmol/L (3.5-5.1); SGOT/AST 10 IU/L (3-35); SGPT/ALT 13 U/L (12-78); SODIUM 128 mmol/L (136-145); TOTAL PROTEIN 7.3 gm/dL (6.4-8.2); TRIGLYCERIDES 52 mg/dl (<150); VLDL CHOLESTEROL 10 mg/dL (6-40)
[2018-05-03 06:22] LABS: THYROID STIM HORMONE (HS) 0.639 uIU/ml (0.358-4.75)
[2018-05-03 06:24] LABS: TROPONIN I < 0.015 ng/ml (<0.045)
[2018-05-03 07:06] LABS: PLATELET SUFFICIENCY NORMAL (NORMAL); TOTAL CELLS COUNTED 100 #CELLS
[2018-05-03 08:22] LABS: ABG BASE EXCESS 7.9 mmol/L (-2.0-2.0); ABG HCO3 35.3 mmol/l (22-26); ABG O2 SATURATION 97.8 % (95-97); ARTERIAL BLOOD GAS PCO2 64.4 mmHg (35-45); ARTERIAL BLOOD GAS PH 7.354 (7.35-7.45); ARTERIAL BLOOD GAS PO2 97.3 mmHg (80-90)
[2018-05-03 09:23] LABS: VITAMIN D, 25-HYDROXY 10.4 ng/mL (30-100)
[2018-05-03 10:56] LABS: ABG BASE EXCESS 7.6 mmol/L (-2.0-2.0); ABG O2 SATURATION 94.2 % (95-97); ARTERIAL BLOOD GAS PCO2 57.2 mmHg (35-45); ARTERIAL BLOOD GAS PH 7.389 (7.35-7.45); ARTERIAL BLOOD GAS PO2 64.4 mmHg (80-90)
[2018-05-03 16:00] VITALS: BP 95/72
[2018-05-03 20:00] VITALS: BP 139/60
[2018-05-04] VITALS: BP 100/50
[2018-05-04 07:01] LABS: ALBUMIN 2.2 gm/dl (3.1-4.5); CHLORIDE 105 mmol/L (98-107)
[2018-05-04 07:07] LABS: ALKALINE PHOSPHATASE 77 U/L (45-117); BUN 7 mg/dl (7-24); SGOT/AST 7 IU/L (3-35); SGPT/ALT 11 U/L (12-78); TOTAL PROTEIN 4.9 gm/dL (6.4-8.2)
[2018-05-04 07:20] LABS: MEAN CELL VOLUME 98.6 fl (81.0-99.0); MEAN CORPUSCULAR HGB 30.3 pg (27.0-31.0); MEAN CORPUSCULAR HGB CONC 30.8 g/dl (33.0-37.0); MEAN PLATELET VOLUME 8.7 fl (9.6-12.3); PLATELET COUNT AUTOMATED 184 10*3/uL (130-400); WHITE BLOOD COUNT 6.8 10*3/uL (4.8-10.8)
[2018-05-04 07:23] LABS: HEMATOCRIT 28.6 % (37.0-47.0)
[2018-05-04 07:24] LABS: SODIUM 140 mmol/L (136-145)
[2018-05-04 07:25] LABS: POTASSIUM 3.4 mmol/L (3.5-5.1)
[2018-05-04 07:47] LABS: PLATELET SUFFICIENCY NORMAL (NORMAL); POLYCHROMASIA SLIGHT; TOTAL CELLS COUNTED 100 #CELLS
[2018-05-04 12:00] VITALS: BP 126/47
[2018-05-04 16:00] VITALS: BP 125/54
[2018-05-04 20:00] VITALS: BP 135/62
[2018-05-05 01:21] VITALS: BP 125/52
[2018-05-05 06:58] LABS: LYMPH # 0.7 10*3/uL (1.3-4.4); LYMPH % 7.8 % (27.0-41.0); MEAN CORPUSCULAR HGB 30.5 pg (27.0-31.0); MEAN CORPUSCULAR HGB CONC 32.6 g/dl (33.0-37.0); MEAN PLATELET VOLUME 8.7 fl (9.6-12.3); MONO # 0.4 10*3/uL (0.1-1.0); MONO % 4.1 % (3.0-9.0); NEUT # 8.1 10*3/uL (2.3-7.9); NEUT % 87.7 % (47.0-73.0); RED CELL DISTRI WIDTH 13.2 % (0-14.5); WHITE BLOOD COUNT 9.2 10*3/uL (4.8-10.8)
[2018-05-05 07:06] LABS: BUN 11 mg/dl (7-24); CHLORIDE 95 mmol/L (98-107); CREATININE 0.49 mg/dL (0.55-1.02); PHOSPHOROUS 2.3 mg/dL (2.5-4.9); POTASSIUM 4.2 mmol/L (3.5-5.1); SGOT/AST 13 IU/L (3-35); SGPT/ALT 15 U/L (12-78); SODIUM 133 mmol/L (136-145); TOTAL PROTEIN 6.6 gm/dL (6.4-8.2)
[2018-05-05 07:07] LABS: ALKALINE PHOSPHATASE 101 U/L (45-117)
[2018-05-05 08:00] VITALS: BP 134/60
[2018-05-05 08:18] LABS: HEMATOCRIT 37.4 % (37.0-47.0); MEAN CELL VOLUME 93.5 fl (81.0-99.0); PLATELET COUNT AUTOMATED 273 10*3/uL (130-400)
[2018-05-05 08:19] LABS: HEMOGLOBIN 12.2 g/dl (12.0-16.0)
[2018-05-05 10:28] LABS: HEMOGLOBIN 8.8 g/dl (12.0-16.0)
[2018-05-05] MEDS ORDERED: ZITHROMAX250 MG PO (12:49)
[2018-05-05] MEDS ORDERED: PREDNISONE10 MG PO (12:49)
== END 2018-05-05 14:41 | disposition home or self-care (01) | DRG 871 ==
LOC: ED 19:06 → EDHOLD 20:52 → 4E 20:52
PROVIDERS: Emergency Medicine; Family Medicine; Internal Medicine; Internal Medicine Critical Care Medicine; Nurse Practitioner Family
DX: A41.9 Sepsis, unspecified organism (principal); J18.1 Lobar pneumonia, unspecified organism; E43 Unspecified severe protein-calorie malnutrition; J96.21 Acute and chronic respiratory failure with hypoxia; J96.22 Acute and chronic respiratory failure with hypercapnia; G93.41 Metabolic encephalopathy; E87.2 Acidosis; E87.1 Hypo-osmolality and hyponatremia; J44.1 Chronic obstructive pulmonary disease with (acute) exacerbation; J44.0 Chronic obstructive pulmonary disease with (acute) lower respiratory infection; E86.0 Dehydration; E87.8 Other disorders of electrolyte and fluid balance, not elsewhere classified; R65.20 Severe sepsis without septic shock; F17.210 Nicotine dependence, cigarettes, uncomplicated; I10 Essential (primary) hypertension; E78.5 Hyperlipidemia, unspecified; G89.29 Other chronic pain; I25.10 Atherosclerotic heart disease of native coronary artery without angina pectoris; D75.89 Other specified diseases of blood and blood-forming organs; E87.6 Hypokalemia; E11.65 Type 2 diabetes mellitus with hyperglycemia; E83.51 Hypocalcemia; J20.9 Acute bronchitis, unspecified; M81.0 Age-related osteoporosis without current pathological fracture; W18.30XA Fall on same level, unspecified, initial encounter; Y93.89 Activity, other specified; Y92.89 Other specified places as the place of occurrence of the external cause; Y99.8 Other external cause status; Z90.49 Acquired absence of other specified parts of digestive tract; Z91.81 History of falling; Z99.81 Dependence on supplemental oxygen; Z90.710 Acquired absence of both cervix and uterus; Z85.3 Personal history of malignant neoplasm of breast; Z90.11 Acquired absence of right breast and nipple; Z79.51 Long term (current) use of inhaled steroids; Z79.899 Other long term (current) drug therapy; Z88.8 Allergy status to other drugs, medicaments and biological substances; Z91.018 Allergy to other foods; Z80.7 Family history of other malignant neoplasms of lymphoid, hematopoietic and related tissues; Z80.3 Family history of malignant neoplasm of breast; Z82.49 Family history of ischemic heart disease and other diseases of the circulatory system

== ENCOUNTER → 2018-05-16 | Outpatient (CLI) | payer OTHER ==
[~2018-05-16] MED LIST changes: +ADVAIR 250/501 EA INH; +ALBUTEROL2.5 MG/0.5 INH; +ALENDRONATE SOD70 M1 PO; +CLEARATADINE10 MG PO; +DALI500T PO; +Glimepiride1 MG PO; +HYDROCODONE-AC1 EAC1 PO; +IMDUR SA30 MG PO; +INCRUSE ELLI62.5 MCG INH; +SPIRONOLACTONE50 M1 PO; +ZITHROMAX250 MG PO
== END | disposition home or self-care (01) ==
LOC: MAMMO 04-12 09:42
DX: R92.8 Other abnormal and inconclusive findings on diagnostic imaging of breast (principal); Z85.3 Personal history of malignant neoplasm of breast

== ENCOUNTER → 2019-07-11 | Outpatient (CLI) | payer OTHER | END | disposition home or self-care (01) | LOC: MAMMO 09:34 | DX: C50.911 Malignant neoplasm of unspecified site of right female breast (principal); Z85.3 Personal history of malignant neoplasm of breast ==

== ENCOUNTER → 2019-10-03 | Day surgery (SDC) | payer OTHER ==
[~2019-10-03] VITALS: Ht 160 cm; Wt 47.6 kg
[2019-10-03 09:45] VITALS: BP 136/61
[2019-10-03 10:57] VITALS: BP 130/53
[2019-10-03 11:01] VITALS: BP 148/63
== END | disposition home or self-care (01) ==
LOC: SDC 09-27 10:15
DX: H25.811 Combined forms of age-related cataract, right eye (principal); E78.00 Pure hypercholesterolemia, unspecified; I25.2 Old myocardial infarction; I25.10 Atherosclerotic heart disease of native coronary artery without angina pectoris; E78.5 Hyperlipidemia, unspecified; M19.90 Unspecified osteoarthritis, unspecified site; J44.9 Chronic obstructive pulmonary disease, unspecified; Z88.8 Allergy status to other drugs, medicaments and biological substances; Z85.3 Personal history of malignant neoplasm of breast; Z98.890 Other specified postprocedural states

== ENCOUNTER 2019-12-04 15:29 | Emergency (ER) | payer OTHER ==
[~2019-12-04] VITALS: Ht 162.5 cm; Wt 47.6 kg
[2019-12-04] MEDS ORDERED: NORCO 10-325 T1 EACH PO (16:51)
== END 2019-12-04 17:15 | disposition home or self-care (01) ==
LOC: ED 15:29
DX: S42.91XA Fracture of right shoulder girdle, part unspecified, initial encounter for closed fracture (principal); I10 Essential (primary) hypertension; Z88.8 Allergy status to other drugs, medicaments and biological substances; Z91.018 Allergy to other foods; Z79.899 Other long term (current) drug therapy; Z90.710 Acquired absence of both cervix and uterus; X58.XXXA Exposure to other specified factors, initial encounter; Y93.89 Activity, other specified; Y92.89 Other specified places as the place of occurrence of the external cause; Y99.8 Other external cause status

== ENCOUNTER → 2020-02-28 | Outpatient (CLI) | payer OTHER ==
[~2020-02-28] MED LIST changes: +NORCO 10-325 T1 EACH PO; +PERCOCET 5-3251 EACH PO
== END | disposition home or self-care (01) ==
LOC: COVID19 04:31
DX: Z01.818 Encounter for other preprocedural examination (principal); Z11.59 Encounter for screening for other viral diseases

== ENCOUNTER → 2020-03-05 | Day surgery (SDC) | payer OTHER ==
[~2020-03-05] VITALS: Ht 161.2 cm; Wt 45.4 kg
[2020-03-05 07:15] VITALS: BP 129/61
[2020-03-05 08:33] VITALS: BP 116/44
[2020-03-05 08:48] VITALS: BP 125/47
[2020-03-05 09:00] VITALS: BP 120/58
== END | disposition home or self-care (01) ==
LOC: SDC 02-01 08:45
DX: H25.812 Combined forms of age-related cataract, left eye (principal); I10 Essential (primary) hypertension; J44.9 Chronic obstructive pulmonary disease, unspecified; F32.9 Major depressive disorder, single episode, unspecified; Z98.890 Other specified postprocedural states; Z79.899 Other long term (current) drug therapy

== ENCOUNTER 2020-11-30 17:39 | Inpatient (IN) | payer OTHER ==
[~2020-11-30] VITALS: Ht 154.9 cm; Wt 45.4 kg
[2020-11-30 09:50] VITALS: BP 117/50
[2020-11-30 17:57] VITALS: BP 122/52
[2020-11-30 18:22] LABS: BASO % 0.3 % (0.0-1.0); EOS % 0.2 % (1.0-4.0); HEMATOCRIT 44.9 % (37.0-47.0); LYMPH # 0.8 10*3/uL (1.3-4.4); LYMPH % 11.9 % (27.0-41.0); MEAN PLATELET VOLUME 8.7 fl (9.6-12.3); MONO # 0.4 10*3/uL (0.1-1.0); MONO % 6.8 % (3.0-9.0); NEUT # 5.1 10*3/uL (2.3-7.9); NEUT % 80.5 % (47.0-73.0); PLATELET COUNT AUTOMATED 202 10*3/uL (130-400); RED BLOOD COUNT 4.63 10*6/uL (4.10-5.10); RED CELL DISTRI WIDTH 13.1 % (0-14.5); WHITE BLOOD COUNT 6.3 10*3/uL (4.8-10.8)
[2020-11-30 18:32] LABS: ACT PARTIAL THROMBO TIME 26.1 SECONDS (20.0-32.1)
[2020-11-30 19:13] LABS: ALBUMIN 3.6 gm/dl (3.1-4.5); ALKALINE PHOSPHATASE 98 U/L (45-117); BUN 16 mg/dl (7-24); CHLORIDE 95 mmol/L (98-107); CREATININE 0.62 mg/dL (0.55-1.02); POTASSIUM 4.2 mmol/L (3.5-5.1); SGOT/AST 16 IU/L (3-35); SGPT/ALT 20 U/L (12-78); SODIUM 134 mmol/L (136-145); TOTAL PROTEIN 7.1 gm/dL (6.4-8.2)
[2020-11-30 19:14] LABS: TROPONIN I < 0.015 ng/ml (<0.045)
[2020-12-01] VITALS (7 sets, daily range): BP systolic 84–127; BP diastolic 44–59
[2020-12-01 05:23] LABS: ALBUMIN 3.2 gm/dl (3.1-4.5); ALKALINE PHOSPHATASE 89 U/L (45-117); BUN 18 mg/dl (7-24); CHLORIDE 98 mmol/L (98-107); CREATININE 0.73 mg/dL (0.55-1.02); POTASSIUM 4.8 mmol/L (3.5-5.1); SGOT/AST 13 IU/L (3-35); SGPT/ALT 16 U/L (12-78); SODIUM 135 mmol/L (136-145); TOTAL PROTEIN 6.6 gm/dL (6.4-8.2)
[2020-12-01 06:20] LABS: HEMATOCRIT 41.8 % (37.0-47.0); MEAN CELL VOLUME 97.7 fl (81.0-99.0); MEAN CORPUSCULAR HGB 30.1 pg (27.0-31.0); MEAN CORPUSCULAR HGB CONC 30.9 g/dl (33.0-37.0); MEAN PLATELET VOLUME 9.3 fl (9.6-12.3); PLATELET COUNT AUTOMATED 194 10*3/uL (130-400); RED BLOOD COUNT 4.28 10*6/uL (4.10-5.10); WHITE BLOOD COUNT 3.5 10*3/uL (4.8-10.8)
[2020-12-01 07:15] LABS: PLATELET SUFFICIENCY NORMAL (NORMAL); TOTAL CELLS COUNTED 100 #CELLS
[2020-12-01 07:36] LABS: BILIRUBIN Negative (Negative); BLOOD Negative (Negative); CLARITY Clear (Clear); COLOR Yellow (Yellow); GLUCOSE Negative (Negative); KETONE 1+ (Negative); LEUKO ESTERASE 1+ (Negative); NITRITE Negative (Negative); PH 5.5 (4.5-8.0); SPECIFIC GRAVITY 1.025 (1.001-1.030)
[2020-12-01 07:43] LABS: BACTERIA TRACE; MUCOUS TRACE; RBC 0-2 rbc/hpf (0-2); WBC 16-20 wbc/hpf (0-5)
[2020-12-01] MEDS ORDERED: ROSUVASTATIN CA40 MG PO (10:40)
[2020-12-01] MEDS ORDERED: LATANOPROST2.5 ML OP (11:18)
[2020-12-01] MEDS ORDERED: ATROVENT HFA12.9 GM INH (11:27)
[2020-12-02] VITALS: BP 112/46
[2020-12-02 08:00] VITALS: BP 114/68
[2020-12-02 12:00] VITALS: BP 116/51
[2020-12-02 16:00] VITALS: BP 123/45
[2020-12-02 20:00] VITALS: BP 126/64
[2020-12-03] VITALS: BP 90/40
[2020-12-03 08:00] VITALS: BP 120/46
[2020-12-03] MEDS ORDERED: PREDNISONE10 MG PO (11:17)
== END 2020-12-03 12:38 | disposition home health service (06) | DRG 191 ==
LOC: ED 17:39 → EDHOLD 20:24 → 4E 20:24
PROVIDERS: Emergency Medicine; Internal Medicine; Nurse Practitioner; ADMIT Internal Medicine; ATTEND Internal Medicine
DX: J44.1 Chronic obstructive pulmonary disease with (acute) exacerbation (principal); E87.1 Hypo-osmolality and hyponatremia; E44.0 Moderate protein-calorie malnutrition; J96.10 Chronic respiratory failure, unspecified whether with hypoxia or hypercapnia; E87.3 Alkalosis; Z68.1 Body mass index [BMI] 19.9 or less, adult; E83.41 Hypermagnesemia; I25.10 Atherosclerotic heart disease of native coronary artery without angina pectoris; M81.0 Age-related osteoporosis without current pathological fracture; E87.8 Other disorders of electrolyte and fluid balance, not elsewhere classified; E86.0 Dehydration; R53.1 Weakness; D72.819 Decreased white blood cell count, unspecified; I10 Essential (primary) hypertension; E11.65 Type 2 diabetes mellitus with hyperglycemia; E78.5 Hyperlipidemia, unspecified; G89.29 Other chronic pain; Z99.81 Dependence on supplemental oxygen; Z85.3 Personal history of malignant neoplasm of breast; Z90.710 Acquired absence of both cervix and uterus; Z87.891 Personal history of nicotine dependence; Z82.49 Family history of ischemic heart disease and other diseases of the circulatory system; Z80.3 Family history of malignant neoplasm of breast; Z80.8 Family history of malignant neoplasm of other organs or systems; Z88.6 Allergy status to analgesic agent; Z91.018 Allergy to other foods; Z79.899 Other long term (current) drug therapy

== ENCOUNTER 2020-12-25 10:31 | Inpatient (IN) | payer OTHER ==
[~2020-12-25] VITALS: Ht 162.6 cm; Wt 41.3 kg
[~2020-12-25 10:31] MED LIST changes: +ATROVENT HFA12.9 GM INH; +LATANOPROST2.5 ML OP; +ROSUVASTATIN CA40 MG PO
[2020-12-25 10:35] VITALS: BP 116/43
[2020-12-25 11:19] LABS: BASO % 0.1 % (0.0-1.0); EOS % 0.3 % (1.0-4.0); HEMATOCRIT 40.9 % (37.0-47.0); LYMPH # 0.5 10*3/uL (1.3-4.4); LYMPH % 6.2 % (27.0-41.0); MEAN CELL VOLUME 99.8 fl (81.0-99.0); MEAN CORPUSCULAR HGB 30.2 pg (27.0-31.0); MEAN CORPUSCULAR HGB CONC 30.3 g/dl (33.0-37.0); MEAN PLATELET VOLUME 8.6 fl (9.6-12.3); MONO # 0.4 10*3/uL (0.1-1.0); MONO % 5.4 % (3.0-9.0); NEUT # 6.4 10*3/uL (2.3-7.9); NEUT % 87.6 % (47.0-73.0); PLATELET COUNT AUTOMATED 223 10*3/uL (130-400); WHITE BLOOD COUNT 7.3 10*3/uL (4.8-10.8)
[2020-12-25 11:32] LABS: ALBUMIN 3.7 gm/dl (3.1-4.5); ALKALINE PHOSPHATASE 74 U/L (45-117); BUN 10 mg/dl (7-24); CHLORIDE 85 mmol/L (98-107); CREATININE 0.58 mg/dL (0.55-1.02); LIPASE 181 U/L (73-393); POTASSIUM 3.3 mmol/L (3.5-5.1); SGOT/AST 10 IU/L (3-35); SGPT/ALT 20 U/L (12-78); SODIUM 131 mmol/L (136-145); TOTAL PROTEIN 6.9 gm/dL (6.4-8.2)
[2020-12-25 11:44] LABS: TROPONIN I < 0.015 ng/ml (<0.045)
[2020-12-25 12:00] VITALS: BP 111/89
[2020-12-25 13:10] VITALS: BP 111/89
[2020-12-25 14:34] LABS: ABG BASE EXCESS 15.6 mmol/L (-2.0-2.0); ARTERIAL BLOOD GAS PH 7.397 (7.35-7.45); ARTERIAL BLOOD GAS PO2 53.1 (80-90)
[2020-12-25 16:00] VITALS: BP 110/45
[2020-12-25 20:00] VITALS: BP 139/45
[2020-12-26] VITALS: BP 121/59
[2020-12-26 06:47] LABS: ALBUMIN 2.9 gm/dl (3.1-4.5); BUN 12 mg/dl (7-24); CHLORIDE 93 mmol/L (98-107); CHOLESTEROL 215 mg/dL (<200); CREATININE 0.62 mg/dL (0.55-1.02); FREE T4 0.77 ng/dl (0.76-1.46); SGOT/AST 8 IU/L (3-35); SGPT/ALT 19 U/L (12-78); SODIUM 132 mmol/L (136-145); TOTAL PROTEIN 6.1 gm/dL (6.4-8.2); TRIGLYCERIDES 37 mg/dl (<150)
[2020-12-26 06:52] LABS: ALKALINE PHOSPHATASE 61 U/L (45-117); LDL CHOLESTEROL 100 mg/dL (9-159); THYROID STIM HORMONE (HS) 0.325 uIU/ml (0.358-4.75)
[2020-12-26 06:59] LABS: HEMATOCRIT 37.6 % (37.0-47.0); MEAN CORPUSCULAR HGB 30.5 pg (27.0-31.0); MEAN CORPUSCULAR HGB CONC 29.5 g/dl (33.0-37.0); PLATELET COUNT AUTOMATED 214 10*3/uL (130-400); RED BLOOD COUNT 3.64 10*6/uL (4.10-5.10); RED CELL DISTRI WIDTH 14.2 % (0-14.5); WHITE BLOOD COUNT 9.2 10*3/uL (4.8-10.8)
[2020-12-26 07:07] LABS: MEAN CELL VOLUME 103.3 fl (81.0-99.0)
[2020-12-26 07:38] LABS: POTASSIUM 4.7 mmol/L (3.5-5.1)
[2020-12-26 07:53] LABS: PLATELET SUFFICIENCY NORMAL (NORMAL); TOTAL CELLS COUNTED 100 #CELLS
[2020-12-26 08:00] VITALS: BP 137/69
[2020-12-26 08:25] LABS: VITAMIN D, 25-HYDROXY 16.9 ng/mL (30-100)
[2020-12-26 12:00] VITALS: BP 105/65
[2020-12-26 16:00] VITALS: BP 108/50
[2020-12-26 20:00] VITALS: BP 123/92
[2020-12-27] VITALS: BP 121/78
[2020-12-27 06:26] LABS: ALKALINE PHOSPHATASE 61 U/L (45-117); BUN 13 mg/dl (7-24); CHLORIDE 92 mmol/L (98-107); CREATININE 0.58 mg/dL (0.55-1.02); SGOT/AST 9 IU/L (3-35); SGPT/ALT 20 U/L (12-78); SODIUM 134 mmol/L (136-145); TOTAL PROTEIN 5.9 gm/dL (6.4-8.2)
[2020-12-27 07:13] LABS: ABG BASE EXCESS 11.8 mmol/L (-2.0-2.0); ARTERIAL BLOOD GAS PH 7.307 (7.35-7.45); ARTERIAL BLOOD GAS PO2 79.2 (80-90)
[2020-12-27 08:00] VITALS: BP 127/59
[2020-12-27 12:00] VITALS: BP 145/57
[2020-12-27 16:00] VITALS: BP 122/58
[2020-12-27 21:03] VITALS: BP 128/54
[2020-12-28] VITALS: BP 92/44
[2020-12-28 06:08] LABS: ALBUMIN 2.7 gm/dl (3.1-4.5); ALKALINE PHOSPHATASE 63 U/L (45-117); BUN 11 mg/dl (7-24); CHLORIDE 100 mmol/L (98-107); CREATININE 0.69 mg/dL (0.55-1.02); POTASSIUM 4.3 mmol/L (3.5-5.1); SGOT/AST 13 IU/L (3-35); SGPT/ALT 22 U/L (12-78); SODIUM 134 mmol/L (136-145); TOTAL PROTEIN 5.9 gm/dL (6.4-8.2)
[2020-12-28 12:00] VITALS: BP 98/35
[2020-12-28] MEDS ORDERED: ZITHROMAX250 MG PO (12:14)
[2020-12-28] MEDS ORDERED: MUCUS RELIEF600 MG PO (12:14)
[2020-12-28] MEDS ORDERED: PREDNISONE10 MG PO (12:14)
== END 2020-12-28 13:15 | disposition home health service (06) | DRG 189 ==
LOC: ED 10:31 → EDHOLD 12:24 → 5E 12:24
PROVIDERS: Emergency Medicine; Internal Medicine; Internal Medicine Critical Care Medicine; Social Worker Clinical; ADMIT Internal Medicine; ATTEND Internal Medicine
PROC: 5A09357 Assistance with Respiratory Ventilation, Less than 24 Consecutive Hours, Continuous Positive Airway Pressure (ICD-10-PCS; principal; 2020-12-27)
PROC: 5A09357 Assistance with Respiratory Ventilation, Less than 24 Consecutive Hours, Continuous Positive Airway Pressure (ICD-10-PCS; 2020-12-28)
DX: J96.22 Acute and chronic respiratory failure with hypercapnia (principal); J44.1 Chronic obstructive pulmonary disease with (acute) exacerbation; J44.0 Chronic obstructive pulmonary disease with (acute) lower respiratory infection; E87.1 Hypo-osmolality and hyponatremia; E87.3 Alkalosis; Z68.1 Body mass index [BMI] 19.9 or less, adult; J20.9 Acute bronchitis, unspecified; E87.6 Hypokalemia; E87.8 Other disorders of electrolyte and fluid balance, not elsewhere classified; R73.9 Hyperglycemia, unspecified; J96.21 Acute and chronic respiratory failure with hypoxia; E83.41 Hypermagnesemia; I10 Essential (primary) hypertension; I25.10 Atherosclerotic heart disease of native coronary artery without angina pectoris; E78.5 Hyperlipidemia, unspecified; G89.29 Other chronic pain; M81.0 Age-related osteoporosis without current pathological fracture; R63.6 Underweight; Z99.81 Dependence on supplemental oxygen; Z88.8 Allergy status to other drugs, medicaments and biological substances; Z88.5 Allergy status to narcotic agent; Z90.710 Acquired absence of both cervix and uterus; Z82.49 Family history of ischemic heart disease and other diseases of the circulatory system; Z79.1 Long term (current) use of non-steroidal anti-inflammatories (NSAID); Z79.899 Other long term (current) drug therapy; Z79.51 Long term (current) use of inhaled steroids